=== PATIENT | female | born 1985 | race Caucasian/White ===

== ENCOUNTER 2024-12-05 07:40 | Outpatient (AMB) | payer OTHER, SELFPAY ==
--- OUTSIDE RECORDS SUMMARY | 2024-12-05 07:42 | XMS_ITS | Encounter Summary ---
Author Organization [facility] Address [address] [place] [address] Care Team Providers Care Spice Miller [employer] Mill Name Role Phone Unavailable Primary Care Provider Unavailabl e Encounter Details Date Type Department Care Team (Late st Contact Info) Description 01/14/2022 Scanned Document [facility] [address] [facility] [address] [place] [address] Mara Stanford PA-C [address] [place] [address] Social History Tobacco Use Types Packs/Day Years Used Date Smoking Tobacco: Never Smokeless Tobacco: Never Alcohol Use Standard Drinks/Week Comments Yes 0 (1 standard drink = 0.6 oz pur e alcohol) socially Comments Unknown Sex and Gender Information Value Date Recorded Sex Assigned at Not on file Legal Sex Female 12:11 PM EST Gender Identity Not on file Sexual Orientation Not on file documented as of this encounter Plan of Treatment Not on file documented as of this encounter Visit Diagnoses Not on filedocumented in this encounter
--- NOTE | 2024-12-05 07:43 | MHC.OFFWIV ---
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 Sinus/ear infection Intake Note: presents with sinus congestion, pain and ear pain, right sided throat pain for a couple weeks Allergies bitrex Adverse Reaction (Intermediate, Uncoded 12/05/24 07:46) throat swelling Do you need a note to return to daycare/school/sports/work: Yes HPI HPI Comments History of Present Illness Details Patient is a 38yo F who presents with cold symptoms She works at [employer] on 11/20 and had allergic reaction to the spray; had throat swelling etc That has resolved but sinuses irritating since then She has had congestion without facial pressure Bad pain to R ear especially when blowing nose Pain level is unknown but irritated per patient She said no documented fever/chills but 99.1 here She has tried no medicine Minima cough without CP or SOB + ST Review of Systems Const Denies chills and Denies fever(s) Eyes Denies change in vision ENT Reports otalgia, Denies facial pain, Reports nasal congestion, Reports nasal discharge, Reports sore throat and Denies throat swelling Card Denies chest pain and Denies dyspnea Resp Reports cough and Denies dyspnea Musc Denies myalgias Skin/Breast Denies rash Aller/Immun Denies throat swelling Physical Exam Vital Signs: Last Vital Signs Temp 99.1 F 12/05/24 07:44 Pulse 82 12/05/24 07:44 BP 104/60 12/05/24 07:44 Pulse Ox 100 12/05/24 07:44 Oxygen Delivery Method Room Air 12/05/24 07:44 BMI result Body Mass Index 34.7 General: Non-toxic, NAD. Speaking full sentences. Skin: Warm dry throughout Eye: EOMI, PERRL HENT: Airway patent. Uvula midline. No pharyngeal erythema or edema. No DIETITIAN RESEARCH. Bilateral canals clear. R TM + erythematous without bulge or perforation. L TM non-erythematous, non-bulging. No TM perforation or hemotympanum noted. No mastoid ttp bilaterally Respiratory: CTA bilaterally. No wheezes, rales or rhonchi Cardiac: RRR. No murmur MSK: Full ROM extremities. Neurology: Alert. No aphasia or facial droop. Gait without abnormality Psych: Good mood and affect Assessment & Plan Assessment & Plan (1) Otitis media, right: Code(s): H66.91 - Otitis media, unspecified, right ear Qualifiers: Otitis media type: suppurative Chronicity: acute Recurrence: non-recurrent Spontaneous tympanic membrane rupture: without spontaneous rupture Qualified Code(s): H66.001 - Acute suppurative otitis media without spontaneous rupture of ear drum, right ear Plan: Patient seen and evaluated. Amoxicillin Diflucan per pt requestfor antibiotic Start antihista,ine daily x 2 weeks F/U with PCP Patient gave verbal understanding and had no additional questions or concerns at time of discharge All questions answered Medications: New fluconazole 150 mg PO DAILY 1 tab 0RF amoxicillin 875 mg PO BID 14 tabs 0RF Coding Level of Care Code New Pt Level 3 (21088) Diagnoses Non-recurrent acute suppurative otitis media of right ear without spontaneous rupture of tympanic membrane H66.001 Otitis media type: suppurative Chronicity: acute Recurrence: non-recurrent Spontaneous tympanic membrane rupture: without spontaneous rupture
--- OUTSIDE RECORDS SUMMARY | 2024-12-05 07:43 | XMS_ITS | Clinical Summary ---
Author Organization [facility] Address [address] [place] [address] Care Team Providers Care Crane Ladle Person Name Role Phone Paco Araujo MD Primary Care Provider [phone] Surgical History Surgery Date Site/Laterality Comments SECTION PROCEDURE: [place] DELIVERY ONLY; COMMENT: x2 EYE SURGERY 2015 PROCEDURE: HISTORICAL EYE SURGERY; COMMENT: glaucoma Medical History Medical History Date Comments Arnold-Chiari malformation, type II ([facility] V24, [facility] V28) DX:Arnold-Chiari malformati on, type II ([facility]) ADHD (attention deficit hype ractivity disorder) DX:ADHD (attention deficit h yperactivity disorder) Bipolar 1 disorder ([facility] V24, [facility] V28) DX:Bipolar 1 disorder ([facility]) Depression DX:Depression Anxiety DX:Anxiety Migraines DX:Migraines IUD (intrauterine device) in place 2011 DX:IUD (intrauterine device) in place; COMMENT: Mirena 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 DX:Narrow angle glaucoma anca pect of both eyes Family History Medical History Relation Name Comments Other: alcoholism Other mother Blindness Neg Hx Cataracts Neg Hx Glaucoma Neg Hx Macular degeneration Neg Hx Strabismus Neg Hx Relation Name Status Comments Brother Alive x2 with adhd Father morphine overdo se Mother Alive mom is adopted, etoh Other Social History Tobacco Use Types Packs/Day Years Used Date Smoking Tobacco: Never Smokeless Tobacco: Never Alcohol Use Standard Drinks/Week Comments No 0 (1 standard drink = 0.6 oz pur e alcohol) Comments Unknown Sex and Gender Information Value Date Recorded Sex Assigned at Not on file Legal Sex Female 11:47 AM EST Gender Identity Not on file Sexual Orientation Not on file Obstetrics History Plan of Treatment Health Maintenance Due Date Last Done Comments Cervical Cancer Screening: Pap Smear 2006 DTaP,Tdap,and Td Vaccines (7 - Td or Tdap) 11/13/2018 11/13/2008, 03/24/2000, 01/27/1994, Additional history exists COVID-19 Vaccine ( - 2023- season) 2024 Influenza Vaccine (#1) 2025 HIB Vaccines Completed 12/10/1987 IPV Vaccines Completed 07/27/1990, 11/21, 12/10/1987, Additional history exists MMR Vaccines Completed 01/14/1998, 03/25/1987 Hepatitis B Vaccines Completed 11/06/1999, 07/04/1998, 06/16/1997 HPV Vaccines Aged Out No longer eligi ble based on patient's age to complete this topic Hepatitis A Vaccines Aged Out No long er eligible based on patient's age to complete this topic Meningococcal ACWY Vaccine Aged Out N o longer eligible based on patient's age to complete this topic Meningococcal B Vaccine Aged Out No l onger eligible based on patient's age to complete this topic Pneumococcal Vaccine: Pediatrics (0 to 5 Years) and At-Risk Patients (6 to 49 Years) Aged Out No longer eligible based on patient's age to complete this topic RSV Immunization Patients Under 20 months Aged Out No longer eligible based on patient's age to complete this topic Varicella Vaccines Aged Out No longer eligible based on patient's age to complete this topic Care Teams Crane Ladle Person Relationship Specialty Start Date End Date Paco Araujo MD PCP - General Internal Medicine 03/12/15
[2024-12-05 07:44] VITALS: BP 104/60; PULSE 82; TEMP 37.3; O2SAT 100; BMI 34.7
== END 2024-12-05 08:52 | disposition home or self-care (01) ==
PROVIDERS: Visit Provider Physician Assistant
DX: H66.001 Acute suppurative otitis media without spontaneous rupture of ear drum, right ear (principal)

== ENCOUNTER 2025-01-08 14:57 | Outpatient (AMB) | payer OTHER, SELFPAY ==
[2025-01-08 15:33] VITALS: BP 116/70; PULSE 76; TEMP 37.1; O2SAT 99; BMI 35.6
--- NOTE | 2025-01-08 15:33 | AM.OFFWIN_ITS ---
Intake Vital Signs 01/08/25 15:33 Height 5 ft 3 in Weight 201 lb 4 oz BMI 35.6 BP 116/70 Blood Pressure Location Rt brachial Position Sitting Pulse 76 Pulse Source Pulse Oximeter Temp 98.7 F Temp Source Oral Pulse Oximetry (%) 99 Oxygen Delivery Method Room Air Intake Visit Reasons: EP-sinus infection Patient Tobacco Use Status: Never used Tobacco Application Release Manager Required: No Is last menstrual period known: No Post menopausal: No Patient : No Allergies bitrex Adverse Reaction (Intermediate, Uncoded 12/05/24 07:46) throat swelling Do you need a note to return to daycare/school/sports/work: No HPI HPI Comments History of Present Illness Details History - The patient is a 39-year-old female pr esenting with symptoms suggestive of a possible COVID-19 infection or sinusitis. - Symptoms began on Wednesday with a scratc hy throat, worsening over the weekend with sore throat, congestion, and white patches in the throat. - The patient reports a stabbing sensati on in the throat, cough, and headache, with fatigue noted. - Recent exposure to infectious mononucl eosis through her children, who were diagnosed with the condition. 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 - Has been eating and drinking. - She denies fever or chills, abd pain, n/v/d. - Is leaving for a cruise in 10 days and wants to feel better. Physical Exam General: Cooperative, healthy appearing, comfortable and no acute distress Orientation/consciousness: Patient oriented x3 Limitations: No limitations Head: Normal to inspection Ears: Hearing grossly normal bilaterally, external ears normal and TM's normal bilaterally Nose: Normal external nose present, normal nares present, and no nasal discharge present. Face and sinus: Sinuses nontender to palpation. Mouth: Normal oral and palatal mucosa present and moist mucous membranes noted. Throat: Tonsils normal. Uvula is midline. Posterior oropharynx with erythema and white patches noted. Eyes: Appearance normal, both eyes and all related structures Neck: Normal visual inspection, full ROM. No lymphadenopathy noted. Reports of muscle spasms and tightness. Respiratory: Clear to auscultation bilaterally. Normal respiratory effort, able to speak in complete sentences. No respiratory distress, not tachypneic, no tripod positioning and no use of accessory muscles. Cardiovascular: Regular rate and rhythm. Normal S1 and S2 Skin: No rashes or lesions noted Patient was informed and verbally consented to the use of an ambient scribe for clinic note documentation during this visit [facility] Social History Patient Tobacco Use Status: Never used Tobacco Patient : No Review of Systems Const All systems reviewed & are unremarkable except as noted in HPI and below Physical Exam Vital Signs: Last Vital Signs Temp 98.7 F 01/08/25 15:33 Pulse 76 01/08/25 15:33 BP 116/70 01/08/25 15:33 Pulse Ox 99 01/08/25 15:33 Oxygen Delivery Method Room Air 01/08/25 15:33 BMI result Body Mass Index 35.6 Results AMB Rapid Strep AMB Rapid Strep Negative Last Edit by Belia Lindsay MA on 01/08/25 16:23 AMB Rapid Kittson AMB Rapid [place] Negative Last Edit by Belia Lindsay MA on 01/08/25 16:23 Results Reviewed Results Reviewed: Laboratory Last Values Monoscreen (Clinic) Negative 01/08/25 16:21 Strep Scn Rapid Clinic Negative 01/08/25 16:21 Assessment & Plan Assessment & Plan (1) Sore throat: Code(s): J02.9 - Acute pharyngitis, unspecified (2) URI with cough and congestion: Code(s): J06.9 - Acute upper respiratory infection, unspecified Plan Most likely mono vs strep vs URI vs sinusitis Rapid mono is negative Rapid strep is neg Plan - Perform tests for COVID-19/flu/RSV - Perform a mononucleosis and streptococcal pharyngitis to determine the cause of symptoms. - Salt water gargles - Diet as tolerated - tylenol or motrin as needed for pain or fever - will call her with results - follow up with PCP Orders: Orders Monotest Today J02.9 - Acute pharyngitis, unspecified SARS-CoV2/FLU/RSV Today R09.89 - Other specified symptoms and signs involving the circulatory and respiratory systems AMB Rapid Strep Screen Today J02.9 - Acute pharyngitis, unspecified AMB Kittson Screen Today Z13.9 - Encounter for screening, unspecified Coding Level of Care Code Est Pt Level 4 (91126) Diagnoses Sore throat J02.9 URI with cough and congestion J06.9
--- OUTSIDE RECORDS SUMMARY | 2025-01-08 15:37 | XMS_ITS | Encounter Summary ---
Author Organization [facility] Address [address] [place] [address] Care Team Providers Care Welder Repair Name Role Phone Unavailable Primary Care Provider Unavailabl e Encounter Details Date Type Department Care Team (Late st Contact Info) Description 01/14/2022 Scanned Document [facility] [address] [facility] [address] [place] [address] Mara Stanford PA-C [address] [place] [address] Social History Tobacco Use Types Packs/Day Years [...]
--- OUTSIDE RECORDS SUMMARY | 2025-01-08 15:37 | XMS_ITS | Clinical Summary ---
Author Organization [facility] Address [address] [place] [address] Care Team Providers Care Proj Engineer Name Role Phone Paco Araujo MD Primary Care Provider [phone] Surgical History Surgery Date Site/Laterality Comments SECTION PROCEDURE: CT DELIVERY ONLY; COMMENT: x2 EYE SURGERY 2015 PROCEDURE: HISTORICAL EYE SURGERY; COMMENT: glaucoma Medical History Medical History Date Comments Arnold-Chiari malformation, type II ([facility] V24, [facility] V28) DX:Arnold-Chiari malformati on, type II ([facility]) ADHD (attention deficit hype ractivity disorder) DX:ADHD (attention deficit h yperactivity disorder) Bipolar 1 disorder ([facility] V24, [facility] V28) DX:Bipolar 1 disorder ([facility]) Depression DX:Depression Anxiety DX:Anxiety Migraines DX:Migraines IUD [...] Additional history exists COVID-19 Vaccine ( - season) 2024 Depression Screening 05/24/2024 Influenza Vaccine (#1) 2025 HIB Vaccines Completed [...] age to complete this topic Care Teams Proj Engineer Relationship Specialty Start Date End Date Paco Araujo MD PCP - General Internal Medicine 03/12/15
--- OUTSIDE RECORDS SUMMARY | 2025-01-08 15:37 | XMS_ITS ---
Author Name [facility] Organization Unknown History of Medication Use Medication Directions Dispensed Refills Start Date End Date Stat us tiZANidine (ZANAFLEX) 2 MG tablet Take 2 tablets (4 mg total) by mouth 2 (two) times a day as needed for muscle spasms. 07/10/2022 09/09/2022 active ZOLMitriptan (ZOMIG) 5 MG tablet 12/06/2019 07/10/2022 aborted ALPRAZolam (XANAX) 0.25 MG tablet Take 0.25 mg by mouth. active Allergies Allergen Reaction Severity Comment Documented Date Source Statu s CLINDAMYCIN PHOS-BENZOYL PEROX SHORTNESS OF BREATH Severe 09/18/2016 [facility] active CARBAMAZEPINE RASH/DERMATITIS Mild 03/27/2015 [facility] active PNEUMOCOCCAL VACCINES OTHER (SEE COMMENTS) 03/14/2015 [facility] active LITHIUM OTHER (SEE COMMENTS) [facility] Problems Problem Status Onset Date Problem Type Date of Resoluti on Source Adhesive capsulitis of right shoulder active EncounterDiagnosisAct [facility] Cervicalgia active EncounterDiagnosisAct [facility] Myofascial pain dysfunction syndrome active EncounterDiagnosisAct [facility] Chronic migraine without aura without status migrainosus, not intractable active EncounterDiagnosisAct [facility] Chronic right shoulder pain active 2019-12-27 ProblemAct [facility] Encounters Encounter Type Encounter Reason Primary Diagnosis Location Date Ambulatory Adhesive capsuli tis of right shoulder [facility] 07/10/2022 Ambulatory Adhesive capsuli tis of right shoulder [facility] 09/17/2021 Care Team Organization Name Specialty Phone Email Start Date End Da te [facility] 09/17/2021 [facility] 12/27/2019 09/17/2021
== END 2025-01-08 16:43 | disposition home or self-care (01) ==
PROVIDERS: Visit Provider Physician Assistant Medical
DX: J02.9 Acute pharyngitis, unspecified (principal); J06.9 Acute upper respiratory infection, unspecified

== ENCOUNTER 2025-01-08 14:57 | Outpatient (REF) | payer OTHER, SELFPAY ==
[2025-01-09 11:06] LABS: Resp Syncy Virus RNA Qual PCR NEGATIVE (Negative); SARS COV2 PCR INHOUSE NEGATIVE (Negative)
== END 2025-01-08 14:58 | disposition home or self-care (01) ==
LOC: HO.LAB 14:57
PROVIDERS: Visit Provider Physician Assistant Medical
DX: J02.9 Acute pharyngitis, unspecified (principal); J06.9 Acute upper respiratory infection, unspecified; R09.89 Other specified symptoms and signs involving the circulatory and respiratory systems; Z13.89 Encounter for screening for other disorder
CPT/HCPCS: 87637; 87880

== ENCOUNTER 2025-01-09 12:19 | Outpatient (REF) | payer OTHER, SELFPAY ==
--- OUTSIDE RECORDS SUMMARY | 2025-01-09 13:37 | XMS_ITS | Clinical Summary ---
Author Organization [facility] it[facility] Address [address] [place] [address] Care Team Providers Care Grain Oilseed Or Pasture Grower Name Role Phone Paco Araujo MD Primary Care Provider [phone] Surgical History Surgery Date Site/Laterality Comments SECTION PROCEDURE: [place] DELIVERY ONLY; COMMENT: x2 EYE SURGERY 2015 PROCEDURE: HISTORICAL EYE SURGERY; COMMENT: glaucoma Medical History Medical History Date Comments Arnold-Chiari malformation, type II ([facility] V24, [facility] V28) DX:Arnold-Chiari malformati on, type II ([facility]) ADHD (attention deficit hype ractivity disorder) DX:ADHD (attention deficit h yperactivity disorder) Bipolar 1 disorder ([facility] V24, [facility] V28) DX:Bipolar 1 disorder ([facility]) Depression DX:Depression Anxiety DX:Anxiety Migraines DX:Migraines [...] age to complete this topic Care Teams Grain Oilseed Or Pasture Grower Relationship Specialty Start Date End Date Paco Araujo MD PCP - General Internal Medicine 03/12/15
--- OUTSIDE RECORDS SUMMARY | 2025-01-09 13:37 | XMS_ITS | Encounter Summary ---
Author Organization [facility] Address [address] [place] [address] Care Team Providers Care Nitroglycerin Distributor Name Role Phone Paco Araujo MD Primary Care Provider [phone] Encounter Details Date Type Department Care Team Description 08/07/2016 [facility] [address] [place] [address] Abstract, Provider Social History Tobacco Use Types Packs/Day Years Used Date Smoking Tobacco: Never Smokeless Tobacco: Never Alcohol Use Standard Drinks/Week Comments No 0 (1 standard drink = 0.6 oz pur e alcohol) once per month, if that Sex Assigned at Date Recorded Not on file documented as of this encounter Plan of Treatment Not on file documented as of this encounter Procedures Procedure Name Priority Date/Time Associated Diagnosis Comments OUTSIDE PLAIN FILM Routine 07/18/2016 documented in this encounter Results * OUTSIDE PLAIN FILM (07/18/2016) Provider Abstract RADIOLOGY documented in this encounter Visit Diagnoses Not on filedocumented in this encounter Care Teams Nitroglycerin Distributor Relationship Specialty Start Date End Date Paco Araujo MD [address] [place] [id number] PCP - General Internal Medicine 03/12/15 documented as of this encounter
--- OUTSIDE RECORDS SUMMARY | 2025-01-09 13:37 | XMS_ITS | Encounter Summary ---
Author Organization [facility] Address [address] [place] [address] Care Team Providers Care Spider Assembler Name Role Phone Unavailable Primary Care Provider Unavailabl e Encounter Details Date Type Department Care Team (Late st Contact Info) Description 01/14/2022 Scanned Document [facility] [address] [facility] [address] [place] [address] Mara Stanford PA-C [address] [place] [address] Social History Tobacco Use Types Packs/Day Years [...]
== END 2025-01-09 12:20 | disposition home or self-care (01) ==
LOC: HO.LAB 12:19
PROVIDERS: Visit Provider Physician Assistant Medical
DX: J02.9 Acute pharyngitis, unspecified (principal)
CPT/HCPCS: 36415; 86308

== ENCOUNTER 2025-02-19 10:27 | Outpatient (REF) | payer OTHER, SELFPAY ==
[2025-02-19 14:39] LABS: Appearance Urine Clear; Glucose Urine UA Negative (Negative); PH 5.5 (5.0-9.0); Specific Gravity - Urine 1.020 (1.005-1.025); UMIC TRIGGER UACC YES
[2025-02-19 14:50] LABS: UACC Culture Trigger YES
[2025-02-19 16:00] LABS: Bacterial Vaginosis PCR NEGATIVE (Negative); Candida Group PCR DETECTED (Not Detect); Candida glab krusei PCR NOT DETECTED (Not Detect); Trichomonas vaginalis PCR NOT DETECTED (Not Detect)
== END 2025-02-19 10:28 | disposition home or self-care (01) ==
LOC: HO.LAB 10:27
PROVIDERS: Visit Provider Nurse Practitioner Family
DX: N76.0 Acute vaginitis (principal)
CPT/HCPCS: 81001; 81003; 81515; 87086

== ENCOUNTER 2025-02-19 10:27 | Outpatient (AMB) | payer OTHER, SELFPAY ==
[2025-02-19 10:33] VITALS: BP 102/64; PULSE 79; TEMP 36.7; O2SAT 98; BMI 36.5
--- NOTE | 2025-02-19 10:33 | AM.OFFWIN_ITS ---
Intake Vital Signs 02/19/25 10:33 Height 5 ft 3 in Weight 206 lb BMI 36.5 BP 102/64 Blood Pressure Location Lt brachial Position Sitting Pulse 79 Pulse Source Pulse Oximeter Temp 98.1 F Temp Source Oral Pulse Oximetry (%) 98 Oxygen Delivery Method Room Air Intake Visit Reasons: ep possible uti or bv/yeast infection Intake Note: pt represents with internal/external itching and skin irritation. Pt states she tried OTC, Fluconazole x2 while in [place] then Monistat one a day x3 Patient Tobacco Use Status: Never used Tobacco Allergies bitrex Adverse Reaction (Intermediate, Uncoded 02/19/25 10:36) throat swelling HPI HPI Comments History of Present Illness Details 39 y/o Female patient who presents to [facility] walk in clinic today with c/o Vaginal Yeast infection for a month now. Reports White thick vaginal discharge, itching and burning. She was on a Cruise when she started having symptoms - took Fluconazole 2 doses with no relief. She has also used OTC Monistat for few weeks with no relief. Denies Bowel or urinary Symptoms. Denies fevers, chills, nausea or vomiting. Sexually active with one male partner - no concerns for STIs. [facility] Medical History (Updated 02/19/25 @ 11:38 by Aspen Dexter NP) Vaginitis and vulvovaginitis Social History Patient Tobacco Use Status: Never used Tobacco Review of Systems Const All systems reviewed & are unremarkable except as noted in HPI and below Physical Exam Vital Signs: Last Vital Signs Temp 98.1 F 02/19/25 10:33 Pulse 79 02/19/25 10:33 BP 102/64 02/19/25 10:33 Pulse Ox 98 02/19/25 10:33 Oxygen Delivery Method Room Air 02/19/25 10:33 BMI result Body Mass Index 36.5 Const General: no acute distress Nutritional Appearance: obese Orientation/consciousness: patient oriented x3 GI Palpation (GI): Soft to palpation, not firm, Tenderness to palpation present (GI) suprapubicly, no guarding and not rigid General: Yes no CVA tenderness External Female Exam: erythema and externally tender Speculum Exam - Vagina: abnormal vaginal discharge white and malodorous and erythematous Speculum Exam - Cervix: Cervical os open, Abnormal cervical discharge present white and malodorous and nontender Bimanual exam- vagina & uterus: uterine size normal and No Cervical tenderness present Bimanual Exam- Adnexa, other: no masses OB/external & speculum: Cervical os open Back/Spine/Pelvis Back: no CVA tenderness Neuro General: patient oriented x3, gait normal and moves all extremities Psych Speech and movement: Normal speech and movement present Assessment & Plan Assessment & Plan (1) Vaginitis and vulvovaginitis: Code(s): N76.0 - Acute vaginitis Plan: Ordered Bacterial Panel Urinalysis Negative today - will Send urine for C&S Will treat with Fluconazole q3days plus topical Terconazole. Abstain from intercourse until infection clears. Orders: Orders Bacterial Vaginosis Panel Today N76.0 - Acute vaginitis UA CC w/rflx Micro + Cult Today N76.0 - Acute vaginitis Medications: New fluconazole 150 mg PO Q3D 3 tabs 4RF 3 days N89.8 - Other specified noninflammatory disorders of vagina terconazole 80 mg vaginal BEDTIME 3 ea 2RF 3 days N76.0 - Acute vaginitis Coding Level of Care Code Est Pt Level 4 (54704) Diagnoses Vaginitis and vulvovaginitis N76.0 Time Spent (min) 20
--- OUTSIDE RECORDS SUMMARY | 2025-02-19 11:40 | XMS_ITS | Encounter Summary ---
Author Organization [facility] Address [address] [place] [address] Care Team Providers Care Child Care Aide Name Role Phone Unavailable Primary Care Provider Unavailabl e Encounter Details Date Type Department Care Team (Late st Contact Info) Description 01/14/[address] [facility] [address] [facility] [address] [place] [address] Mara Stanford PA-C [address] [place] [address] Social History Tobacco Use Types Packs/Day Years [...]
--- OUTSIDE RECORDS SUMMARY | 2025-02-19 11:40 | XMS_ITS | Encounter Summary ---
Author Organization [facility] Address [address] [place] [address] Care Team Providers Care Telesales Representative Name Role Phone Unavailable Primary Care Provider Unavailabl e Encounter Details Date Type Department Care Team ([facility] st Contact Info) Description 04/23/2021 Erroneous Encounter [facility] CONVERSION DEPT [address] [place] [address] Nati Xie, [facility] [address] [facility] [address] [place], [place] [id number] Social History Tobacco Use Types Packs/Day Years [...]
--- OUTSIDE RECORDS SUMMARY | 2025-02-19 11:40 | XMS_ITS | Clinical Summary ---
Author Organization [facility] Address [address] [place] [address] Care Team Providers Care Fence Maker Name Role Phone Unavailable Primary Care Provider Unavailabl e Allergies Active Allergy Reactions Criticality Noted Date Comments Carbamazepine Rash/Dermatitis Low 03/27/2015 Clindamycin Phos-Benzoyl Perox Shortness Of Breath High 09/18/2016 [place] Other (See Comments) 03/14/2015 Pneumococcal Vaccines Other (See Comments) 02/22 Medications ALPRAZolam (XANAX) 0.25 MG tablet Take 0.25 mg by mouth. Active amphetamine-dex troamphetamine (ADDERALL XR) 20 MG 24 hr capsule Take 20 mg by mouth. Active amphetamine-dex troamphetamine (ADDERALL) 20 MG tablet Take 20 mg by mouth. Active levonorgestrel (MIRENA) 20 mcg/24hr IUD 1 each by Intrauterine route. Active SUPPLY DME MISCIndications :Chronic right shoulder pain,Cervicalgi a OSKA 1 each 2 Active tiZANidine (ZANAFLEX) 2 MG tabletIndicatio ns:Adhesive capsulitis of right shoulder,Myofas cial pain dysfunction syndrome,Cervic algia,Chronic right shoulder pain Take 2 tablets (4 mg total) by mouth 2 (two) times a day as needed for muscle spasms. 60 tablet 3 Active meloxicam (MOBIC) 7.5 MG tabletIndicatio ns:Adhesive capsulitis of right shoulder,Myofas cial pain dysfunction syndrome,Cervic algia,Chronic right shoulder pain Take 1 tablet (7.5 mg total) by mouth 2 (two) times a day as needed for moderate pain. 30 tablet 3 Active ZOLMitriptan (ZOMIG) 5 MG tabletIndicatio ns:Chronic migraine without aura without status migrainosus, not intractable Take 1 tablet (5 mg total) by mouth once as needed for migraine. 3 tablet 3 Active Active Problems Problem Noted Date Diagnosed Date Chronic right shoulder pain 12/27/2019 Family History Medical History Relation Name Comments Anxiety disorder Brother Anxiety disorder Mother Depression Mother Relation Name Status Comments Brother Mother Social History Tobacco Use Types Packs/Day Years Used Date Smoking Tobacco: Never Smokeless Tobacco: Never Tobacco Cessation:Counseling Given: Not Answered Alcohol Use Standard Drinks/Week Comments Yes 0 (1 standard drink = 0.6 oz pur e alcohol) socially Comments Unknown Sex and Gender Information Value Date Recorded Sex Assigned at Not on file Legal Sex Female 12:11 PM EST Gender Identity Not on file Sexual Orientation Not on file Last Filed Vital Signs Vital Sign Reading Time Taken Comments Blood Pressure 121/74 07/10/2022 10:39 AM EST Pulse 80 07/10/2022 10:39 AM EST Temperature 36.7 C (98.1 F) 07/10/2022 10:39 AM EST Respiratory Rate 18 07/10/2022 10:39 AM EST Oxygen Saturation 97% 07/10/2022 10:39 AM EST Inhaled Oxygen Concentration - - Weight 90.7 kg (200 lb) 07/10/2022 10:39 AM EST Height 162.6 cm (5' 4.02 ) 07/10/2022 10:[address] Body Mass Index 34.31 07/10/2022 10:39 AM EST Plan of Treatment Health Maintenance Due Date Last Done Comments Hepatitis C Virus Screening 1985 HIV Screening 1998 DTaP/Tdap/Td Vaccines (1 - Tdap) 2004 Hepatitis B Vaccines (1 of 3 - 19+ 3-dose series) 2004 Pap Smear (Ages 21-65) 2006 Influenza Vaccine 12/22/2024 COVID-19 Vaccine (1 - 2023-2 5 season) 2025 HPV Vaccines (No Doses Required) Completed Pneumococcal Vaccine: Pediat manohar (0-5 Years) and At-Risk Patients (6 to 49 Years) Aged Out No longer eligible b ased on patient's age to complete this topic Insurance [facility]
--- OUTSIDE RECORDS SUMMARY | 2025-02-19 11:40 | XMS_ITS | Clinical Summary ---
Author Organization [facility] Address [address] [place] [address] Care Team Providers Care Basin Cleaner Name Role Phone Paco Araujo MD Primary Care Provider [phone] Surgical History Surgery Date Site/Laterality Comments SECTION PROCEDURE: OR DELIVERY ONLY; COMMENT: x2 EYE SURGERY 2015 PROCEDURE: HISTORICAL EYE SURGERY; COMMENT: glaucoma Medical History Medical History Date Comments Arnold-Chiari malformation, type II ([facility] V24, [facility] V28) DX:Arnold-Chiari malformati on, type II ([facility]) ADHD (attention deficit hype ractivity disorder) DX:ADHD (attention deficit h yperactivity disorder) Bipolar 1 disorder ([facility] V24, [facility] V28) DX:Bipolar 1 disorder ([facility]) Depression DX:Depression Anxiety DX:Anxiety Migraines DX:Migraines IUD [...] 11/13/2018 11/13/2008, 03/24/2000, 01/27/1994, Additional history exists Depression Screening 05/24/2024 COVID-19 Vaccine ( season) 2025 Influenza Vaccine (#1) 2025 HIB Vaccines Completed [...] age to complete this topic Care Teams Basin Cleaner Relationship Specialty Start Date End Date Paco Araujo MD [address] [place] [id number] PCP - General Internal Medicine 01/23/25
== END 2025-02-19 11:39 | disposition home or self-care (01) ==
PROVIDERS: Visit Provider Nurse Practitioner Family
DX: N76.0 Acute vaginitis (principal); Z13.9 Encounter for screening, unspecified

== ENCOUNTER 2025-03-23 10:19 | Outpatient (REF) | payer OTHER, SELFPAY ==
[2025-03-23 18:55] LABS: Appearance Urine Clear; Glucose Urine UA Negative (Negative); PH 7.0 (5.0-9.0); Specific Gravity - Urine 1.010 (1.005-1.025); UMIC TRIGGER UACC YES
[2025-03-23 19:22] LABS: UACC Culture Trigger YES
[2025-03-24 12:01] LABS: CT PCR Urine NOT DETECTED (Not Detect.); NG PCR Urine NOT DETECTED (Not Detect.)
[2025-03-24 14:30] LABS: Bacterial Vaginosis PCR NEGATIVE (Negative); Candida Group PCR DETECTED (Not Detect); Candida glab krusei PCR NOT DETECTED (Not Detect); Trichomonas vaginalis PCR NOT DETECTED (Not Detect)
== END 2025-03-23 10:20 | disposition home or self-care (01) ==
LOC: HO.LAB 10:19
PROVIDERS: Nurse Practitioner Family; Visit Provider Physician Assistant Medical
DX: Z00.00 Encounter for general adult medical examination without abnormal findings (principal); E11.43 Type 2 diabetes mellitus with diabetic autonomic (poly)neuropathy; K31.84 Gastroparesis; E78.5 Hyperlipidemia, unspecified; G93.5 Compression of brain; F90.9 Attention-deficit hyperactivity disorder, unspecified type; N63.20 Unspecified lump in the left breast, unspecified quadrant; E83.39 Other disorders of phosphorus metabolism; E04.9 Nontoxic goiter, unspecified; J34.2 Deviated nasal septum; M79.671 Pain in right foot; M79.672 Pain in left foot; N76.0 Acute vaginitis; G43.909 Migraine, unspecified, not intractable, without status migrainosus; Z76.89 Persons encountering health services in other specified circumstances; Z79.84 Long term (current) use of oral hypoglycemic drugs
CPT/HCPCS: 81001; 81515; 87086; 87491; 87591; 96127

== ENCOUNTER 2025-03-23 10:19 | Outpatient (AMB) | payer OTHER, SELFPAY ==
--- NOTE | 2025-03-23 10:19 | A.OFFPC_ITS ---
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 Telephone Information Required: No Accompanied by: Self / Same As Patient Allergies carbamazepine (From Tegretol) Allergy (Mild, Verified 03/23/25 11:22) Rash lamotrigine (From Lamictal) Allergy (Mild, Verified 03/23/25 11:22) Rash Latex, Natural Rubber Allergy (Mild, Verified 03/23/25 11:22) Rash lithium Allergy (Mild, Verified 03/23/25 11:22) hypothyroidism pneumonia vaccine Allergy (Mild, Uncoded 03/23/25 11:22) cellulitis bitrex Adverse Reaction (Intermediate, Uncoded 03/23/25 11:22) throat swelling Medication List - Last Reconciled 03/23/25 by Meche Hoffman PA-C albuterol sulfate 90 mcg/actuation (Ventolin HFA) 2 puffs inhalation Q6H PRN atorvastatin 80 mg PO BEDTIME blood-glucose sensor (Dexcom G7 Sensor device) check glucose TIF with meals and at bedtime blood-glucose,vaccine customer representative,cont (Dexcom G7 White Lead Grinder) check glucose TID with meals and at bedtime cholecalciferol (vitamin D3) 1,250 mcg PO QWEEK dextroamphetamine-amphetamine 20 mg PO dextroamphetamine-amphetamine 30 mg ER 1 cap PO DAILY dicyclomine 20 mg PO TID PRN ezetimibe 10 mg PO DAILY famotidine 40 mg PO DAILY fluconazole 150 mg PO Q3D 3 days hydrocortisone 2.5% SC BID PRN meloxicam 15 mg PO DAILY metformin 500 mg PO BID ondansetron 4 mg PO TID PRN pantoprazole 40 mg PO BID terconazole 80 mg vaginal BEDTIME 3 days tizanidine 4 mg PO Q8H PRN ubrogepant (Ubrelvy) mg PO zolmitriptan 5 mg PO DAILY PRN Tobacco use date assessed: 03/23/25 Dental Screening Dental Screen Date: 03/23/25 Did you have a dental visit in the last 12 months?: Yes Did you have a dental problem in the last 6 months where you did not have access to dental care?: No Was dental information given to patient?: Patient has dentist HPI Establish Care HPI Details The patient is a 39-year-old female presenting to establish care and for a physical examination. She has a history of gastroparesis, which was diagnosed within the last year via a gastric emptying study after she advocated for the testing for over a year. This diagnosis followed a cholecystectomy in June of the previous year, which was performed because her symptoms were initially attributed to her gallbladder. Associated with her gastroparesis, she reports issues with malabsorption, which she believes contributes to her history of hypophosphatemia. She reports her phosphate levels have dropped to critically low levels, with one instance of 0.7 leading to an emergency department visit where a pulmonary embolism was suspected. She also has insulin resistance secondary to gastroparesis, technically classified as type 2 diabetes, for which she takes metformin 500 mg twice daily. The patient has a history of hyperlipidemia, managed with atorvastatin 80 mg and ezetimibe 10 mg. She was previously followed by a [facility] where there were conflicting reports about a partial blockage. Neurologically, she has a diagnosis of Arnold-Chiari malformation type 1, with an 8-mm herniation, and suffers from migraines. For her migraines, she takes zolmitriptan and tizanidine. Her psychiatric history is significant for ADHD, for which she is treated with Adderall XR 30 mg and a supplemental dose of IR 20 mg, as she is an ultra-rapid metabolizer. She reports no history of anxiety or depression. Other medical history includes asthma treated with albuterol, a deviated septum causing breathing difficulties, and recurrent ear and sinus infections, which she suspects may be fungal. She reports a partially collapsed right lung discovered accidentally on a CT scan last year, months after having RSV. She also has bilateral foot pain, possibly related to very high arches. Her gynecological history includes recurrent vulvovaginal candidiasis, with a positive test for yeast one month prior. She has a painful breast lump present for a couple of months and a history of fibrous breasts. She has not had a cervical cancer screening in a long time and has never had a mammogram. She had a colonoscopy within the last year. 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 [facility] Medical History Enlarged thyroid Left breast lump Deviated septum Type 2 diabetes mellitus with hemoglobin A1c goal of less than 7.0% Pure hypercholesterolemia, unspecified Hypophosphatemia Hyperlipidemia Bilateral foot pain Gastroparesis Arnold-Chiari malformation, type I ADHD Cervical cancer screening Annual physical exam Encounter for assessment of STD exposure Vaginitis and vulvovaginitis Surgical History History of cholecystectomy (~2023) History of colonoscopy (~2023) Family History Father No problems noted. Mother COPD (chronic obstructive pulmonary disease) Heart problem Social History Housing: House Alcohol intake: current Alcohol intake frequency: does not drink Patient Tobacco Use Status: Never used Tobacco service: No Current occupational status: employed Current occupation: [employer] employee Cognitive needs: No Hearing needs: No Vision needs: No Questionnaire PHQ-9 Over the last 2 weeks, how often have you been bothered by any of the following problems? 1. Little interest or pleasure in doing things: not at all 2. Feeling down, depressed, or hopeless: not at all 3. Trouble falling or staying asleep, or sleeping too much: not at all 4. Feeling tired or having little energy: not at all 5. Poor appetite or overeating: not at all 6. Feeling bad about yourself - or that you are a failure or have let yourself or your family down: not at all 7. Trouble concentrating on things, such as reading the newspaper or watching television: not at all 8. Moving or speaking so slowly that other people could have noticed. Or the opposite - being so fidgety or restless that you have been moving around a lot more than usual: not at all 9. Thoughts that you would be better off or of hurting yourself in some way: not at all Total score: 0 Depression Screening Interpretation: Negative Depression Screening Done: Yes 39485 - PHQ-9 Billing: Yes Source: Developed by Drs. Herber Aragon, Bruna Lei, Jese Earl and colleagues, with an educational aric from [employer]. Thrive Questionnaire Date Thrive assessed: 03/23/25 I am a: Patient What is your living situation today?: I have a steady place to live Within the past 12 months, did the food you bought not last and you didn't have the money to get more?: Never true Within the past 12 months, did you worry whether your food would run out before you got money to buy more?: Never true Do you have trouble paying for medicines?: No Do you have trouble getting transportation to medical appointments?: No Do you have trouble paying your heating and electricity bill?: No Do you have trouble taking care of your child, family member or friend?: No Do you have trouble with day-to-day activities such as bathing, preparing meals, shopping, managing finances, etc.?: No Are you currently unemployed and looking for a job?: No Are you interested in more education?: No Please select the resources that you would like help with: None THRIVE Score: 0 AUDIT C Alcohol Use Questionnaire (AUDIT-C) 1. How often do you have a drink containing alcohol?: Never 3. How often do you have six or more drinks on one occasion?: Never Total Score: 0 Score Reviewed/Action Taken: No MARYAM-7 AMB Questionnaire MARYAM-7 Date MARYAM - 7 assessed: 03/23/25 Feeling nervous, anxious, or on edge: 0 = Not at all Not being able to stop or control worryin = Not at all Worrying too much about different things: 0 = Not at all Trouble relaxin = Not at all Being so restless that it is hard to sit still: 0 = Not at all Becoming easily annoyed or irritable: 0 = Not at all Feeling afraid as if something awful might happen: 0 = Not at all Total MARYAM-7 score (0-4 normal; 5-9 mild; 10-14 moderate; 15-21 severe): 0 Source: Developed by Drs. Herber Aragon, Bruna Lei, Jese Earl and colleagues, with an educational aric from [employer]. MARYAM-7 Assessment Billing MARYAM-7 Assessment Tool: MARYAM-7 Assessment 27317 Review of Systems Const Details: - HEENT: Reports recurrent ear and sinus infections, with a sinus infection that is not resolving with antibiotics. Denies hearing loss. - Respiratory: Reports a deviated septum that makes it difficult to breathe. Reports history of a partially collapsed lung. Denies trouble breathing at present. - Gastrointestinal: Reports history of gastroparesis and an esophageal stasis ring that was previously dilated. Denies difficulty swallowing. - Genitourinary: Reports recurrent vaginal discharge and yeast infections. - Musculoskeletal: Reports bilateral foot pain, possibly related to high arches. - Neurological: Reports migraines. Denies other neurological symptoms. - Breasts: Reports a painful lump that has been present for a couple of months. Reports a history of fibrous breasts. - Endocrine: Denies any known history of thyroid problems, though mentions a family history of thyroid issues. - Psychiatric: Reports a diagnosis of ADHD. Denies anxiety or depression. - Cardiovascular: Denies leg swelling. All systems reviewed & are unremarkable except as noted in HPI and below Physical exam (Primary Care) Vital Signs: Last Vital Signs Temp 98.4 F 03/23/25 10:30 Pulse 73 03/23/25 10:30 Resp 16 03/23/25 10:30 BP 112/55 L 03/23/25 10:30 Pulse Ox 98 03/23/25 10:30 Oxygen Delivery Method Room Air 03/23/25 10:30 Care Plan Goal for BP management: <140/90 at Goal BMI result Body Mass Index 37.5 BMI Assessment/Plan discussion: High BMI High, discussed plan: lifestyle, weight reduction, dietary, physical activity, alcohol moderation and other Tobacco/Smoking Status: Tobacco use Status Tobacco use date assessed 03/23/25 03/23/25 10:47 Patient Tobacco Use Status Never used Tobacco 03/23/25 10:29 PHQ-9: PHQ-9 Score PHQ-9: Total score 0 03/23/25 10:47 Depression Screening Interpretation: Negative Thrive Assessment: Date of Thrive Assessment Date Thrive assessed 03/23/25 03/23/25 10:47 Const Other: Appearance: Alert. Oriented X3. No acute distress. Head: Normal external exam. Normocephalic. Atraumatic. Eyes: Pupils are equal, round, and reactive to light. Extraocular movements intact. Conjunctiva and sclera normal. Eyelids normal. Ears: External auditory canal normal. Tympanic membranes normal. Throat: Pharynx normal. Uvula midline. Moist mucous membranes. Neck: Normal inspection. Neck supple. Full range of motion. No adenopathy. Thyroid appears enlarged but no discrete lumps felt. No meningeal signs. No neck mass noted. Cardiovascular: Normal heart rate and rhythm. Heart sound normal. No murmurs noted. Pulses normal throughout. Breast: Left breast at the 03:00 painful lump. No signs of abscess or infection no erythema. Right breast normal. No rashes are noted bilaterally. No nipple discharge. Respiratory: No respiratory distress. Painless inspiration. Breath sounds normal. No wheezes/rales/rhonchi noted. Chest nontender. No accessory muscle usage noted or decreased air movement noted. History of partially collapsed lung on the right side. Abdomen: Soft and nontender. Bowel sounds normal in all 4 quadrants. No distention noted. No organomegaly noted. No visible injury noted. Back: No costovertebral angle tenderness. Full range of motion noted. Skin: Skin warm and dry. Normal skin color. Normal skin turgor. No rashes/lesions/lacerations noted. Extremities: No lower extremity edema. Extremities exhibit normal range of motion. Extremities nontender. Neuro: Oriented X 3. No motor deficit. No sensory deficit. Reflexes normal. Results Reviewed Results Reviewed: - Labs: Previous phosphate level was 0.7. On April 21, 2024, the phosphate level was 2.2. - Tests and Diagnostics: A test one month ago was negative for bacterial vaginosis but positive for yeast. Coding Level of Care Code New Pt Level 4 (56046) New Pt Prev Care 18-39yr(87896 Diagnoses Annual physical exam Z00.00 Left breast lump N63.20 Gastroparesis K31.84 Hypophosphatemia E83.39 Hyperlipidemia E78.5 Type 2 diabetes mellitus with hemoglobin A1c goal of less than 7.0% E11.9 Arnold-Chiari malformation, type I G93.5 ADHD F90.9 Enlarged thyroid E04.9 Deviated septum J34.2 Bilateral foot pain M79.671; M79.672 Vaginitis and vulvovaginitis N76.0 Cervical cancer screening Z12.4 Additional Codes PHQ-9 - 54511 - PHQ-9 Billing: Yes ([id number]) MARYAM-7 Assessment Billing - MARYAM-7 Assessment Tool: MARYAM-7 Assessment 25031 ([id number]) Time Spent (min) 60 Assessment & Plan Assessment & Plan (1) Annual physical exam: Code(s): Z00.00 - Encounter for general adult medical examination without abnormal findings Category: Medical Plan: The visit will serve as the patient's annual physical to establish care. Ordered comprehensive blood work including CBC, CMP, magnesium, cholesterol panel, hemoglobin A1c, thyroid studies, and a phosphate level. A urine sample and a self-collected vaginal swab for NAAT were obtained. Referral to [facility] for cervical cancer screening is placed. Patient will follow up in 3 months. (2) Left breast lump: Comment: at 3 O'clock Code(s): N63.20 - Unspecified lump in the left breast, unspecified quadrant Category: Medical Plan: The patient reports a painful breast lump present for a couple of months, which is also tender on examination. A diagnostic mammogram and a targeted breast ultrasound are ordered for further evaluation. (3) Gastroparesis: Code(s): K31.84 - Gastroparesis Category: Medical Plan: The patient has a history of gastroparesis and associated malabsorption, leading to hypophosphatemia. A referral to Gastroenterology for ongoing management will be placed. Prescriptions for dicyclomine (Bentyl) will be refilled. (4) Hypophosphatemia: Code(s): E83.39 - Other disorders of phosphorus metabolism Category: Medical Plan: The patient has a history of gastroparesis and associated malabsorption, leading to hypophosphatemia. A referral to Gastroenterology for ongoing management will be placed. Prescriptions for dicyclomine (Bentyl) will be refilled. (5) Hyperlipidemia: Code(s): E78.5 - Hyperlipidemia, unspecified Category: Medical Plan: Will continue current therapy with atorvastatin 80 mg and ezetimibe 10 mg. A referral to cardiology will be placed for management of hyperlipidemia and further evaluation of a previously noted potential partial blockage. (6) Type 2 diabetes mellitus with hemoglobin A1c goal of less than 7.0%: Code(s): E11.9 - Type 2 diabetes mellitus without complications Category: Medical Plan: The patient has insulin resistance secondary to gastroparesis, managed with metformin 500 mg twice daily. Will attempt to send a prescription for a continuous glucose monitor (CGM), preferably Dexcom or Megan 3, to assist with monitoring given her work constraints. If the CGM is not covered by insurance, the patient will continue with test strips. (7) Arnold-Chiari malformation, type I: Code(s): G93.5 - Compression of brain Category: Medical Plan: A referral to neurology will be placed for management of her type 1 Arnold- Chiari malformation and associated migraines. Refills for zolmitriptan and tizanidine will be provided. (8) ADHD: Comment: On Adderall Code(s): F90.9 - Attention-deficit hyperactivity disorder, unspecified type Category: Medical Plan: A one-month supply of her Adderall will be prescribed as a bridge. Referrals to a psychiatrist for ongoing medication management and to a therapist are placed. (9) Enlarged thyroid: Code(s): E04.9 - Nontoxic goiter, unspecified Category: Medical Plan: An enlarged thyroid was noted on physical exam, and the patient reports a family history of thyroid issues. An ultrasound of the thyroid is ordered to further evaluate. (10) Deviated septum: Code(s): J34.2 - Deviated nasal septum Category: Medical Plan: Asthma: Refill for albuterol will be sent. Deviated Septum/Recurrent Infections: A referral to an ENT specialist is placed for evaluation of a deviated septum and chronic infections. Bilateral foot pain: A referral to Podiatry is placed for evaluation. Recurrent Vulvovaginal Candidiasis: Will await results of the vaginal swab before initiating treatment. (11) Bilateral foot pain: Code(s): M79.671 - Pain in right foot; M79.672 - Pain in left foot Category: Medical Plan: Asthma: Refill for albuterol will be sent. Deviated Septum/Recurrent Infections: A referral to an ENT specialist is placed for evaluation of a deviated septum and chronic infections. Bilateral foot pain: A referral to Podiatry is placed for evaluation. Recurrent Vulvovaginal Candidiasis: Will await results of the vaginal swab before initiating treatment. (12) Vaginitis and vulvovaginitis: Code(s): N76.0 - Acute vaginitis Category: Medical Plan: Asthma: Refill for albuterol will be sent. Deviated Septum/Recurrent Infections: A referral to an ENT specialist is placed for evaluation of a deviated septum and chronic infections. Bilateral foot pain: A referral to Podiatry is placed for evaluation. Recurrent Vulvovaginal Candidiasis: Will await results of the vaginal swab before initiating treatment. (13) Cervical cancer screening: Code(s): Z12.4 - Encounter for screening for malignant neoplasm of cervix Category: Medical Plan: Will refer to automotive sales associate for cervical cancer screening. Plan Plan Patient was informed and verbally consented to the use of an ambient scribe for clinic note documentation during this visit. 1. Wellness Visit And Health Maintenance The visit will serve as the patient's annual physical to establish care. Ordered comprehensive blood work including CBC, CMP, magnesium, cholesterol panel, hemoglobin A1c, thyroid studies, and a phosphate level. A urine sample and a self-collected vaginal swab for NAAT were obtained. Referral to [facility] for cervical cancer screening is placed. Patient will follow up in 3 months. 2. Breast Lump The patient reports a painful breast lump present for a couple of months, which is also tender on examination. A diagnostic mammogram and a targeted breast ultrasound are ordered for further evaluation. 3. Gastroparesis And Hypophosphatemia The patient has a history of gastroparesis and associated malabsorption, leading to hypophosphatemia. A referral to Gastroenterology for ongoing management will be placed. Prescriptions for dicyclomine (Bentyl) will be refilled. 4. Hyperlipidemia Will continue current therapy with atorvastatin 80 mg and ezetimibe 10 mg. A referral to cardiology will be placed for management of hyperlipidemia and further evaluation of a previously noted potential partial blockage. 5. Type 2 Diabetes Mellitus With Insulin Resistance The patient has insulin resistance secondary to gastroparesis, managed with metformin 500 mg twice daily. Will attempt to send a prescription for a continuous glucose monitor (CGM), preferably Dexcom or Megan 3, to assist with monitoring given her work constraints. If the CGM is not covered by insurance, the patient will continue with test strips. 6. Arnold-Chiari Malformation And Migraines A referral to neurology will be placed for management of her type 1 Arnold- Chiari malformation and associated migraines. Refills for zolmitriptan and tizanidine will be provided. 7. Attention-Deficit/Hyperactivity Disorder (Adhd) A one-month supply of her Adderall will be prescribed as a bridge. Referrals to a psychiatrist for ongoing medication management and to a therapist are placed. 8. Enlarged Thyroid An enlarged thyroid was noted on physical exam, and the patient reports a family history of thyroid issues. An ultrasound of the thyroid is ordered to further evaluate. 9. Other Conditions And Referrals Asthma: Refill for albuterol will be sent. Deviated Septum/Recurrent Infections: A referral to an ENT specialist is placed for evaluation of a deviated septum and chronic infections. Bilateral foot pain: A referral to Podiatry is placed for evaluation. Recurrent Vulvovaginal Candidiasis: Will await results of the vaginal swab before initiating treatment. I discussed with the patient that we would treat this visit as her annual phy sical and to establish care. I explained the plan for comprehensive lab work, including CBC, CMP, cholesterol, A1c, thyroid function, and phosphate levels. We reviewed her extensive medical history and determined that multiple specialist referrals are necessary, including to Cardiology, Gastroenterology, Neurology, Podiatry, ENT, Psychiatry, and [facility]. I informed her that I would provide a one-month bridge prescription for her Adderall while she establishes care with a psychiatrist. Regarding the painful breast lump, I explained the need for a diagnostic mammogram and a focused ultrasound instead of a routine screening mammogram. I also explained that because I felt her thyroid was enlarged on exam, and given her maternal family history, I would order a thyroid ultrasound for further evaluation. We discussed an attempt to get a Continuous Glucose Monitor covered by her insurance to help manage her diabetes, but acknowledged it may be denied as she is not on insulin. I instructed her to contact the office if she does not hear from any of the referral departments within a month. We agreed to a follow-up appointment in three months to review all results and progress on specialist consultations. Orders: Orders C Reactive Protein Today Z00.00 - Encounter for general adult medical examination without abnormal findings Comprehensive [place]. Panel Fast Today Z00.00 - Encounter for general adult medical examination without abnormal findings Lipid Panel Today Z00.00 - Encounter for general adult medical examination without abnormal findings Phosphorus Today Z00.00 - Encounter for general adult medical examination without abnormal findings TSH reflex Free T4 Today Z00.00 - Encounter for general adult medical examination without abnormal findings Vitamin B12 and Folate Today Z00.00 - Encounter for general adult medical examination without abnormal findings Erythrocyte Sedimentation Rate Today Z00.00 - Encounter for general adult medical examination without abnormal findings MM diagnostic mammo BI Today N63.20 - Unspecified lump in the left breast, unspecified quadrant US thyroid Today E04.9 - Nontoxic goiter, unspecified Bacterial Vaginosis Panel Today N76.0 - Acute vaginitis CT NG by PCR Urine Today Z76.89 - Persons encountering health services in other specified circumstances Complete Blood Count Auto Diff Today Z00.00 - Encounter for general adult medical examination without abnormal findings Hemoglobin A1c Today Z00.00 - Encounter for general adult medical examination without abnormal findings Magnesium Today Z00.00 - Encounter for general adult medical examination without abnormal findings Liver Panel Today Z00.00 - Encounter for general adult medical examination without abnormal findings Vitamin D 25-OH Total Today Z00.00 - Encounter for general adult medical examination without abnormal findings US breast LT limited Today N63.20 - Unspecified lump in the left breast, unspecified quadrant Referrals Psychiatry Referral F90.9 - Attention-deficit hyperactivity disorder, unspecified type Counseling Referral F90.9 - Attention-deficit hyperactivity disorder, unspecified type Podiatry Referral M79.671 - Pain in right foot, M79.672 - Pain in left foot Cardiology Referral E78.00 - Pure hypercholesterolemia, unspecified, E78.5 - Hyperlipidemia, unspecified, E83.39 - Other disorders of phosphorus metabolism Ear/Nose/Throat Referral J34.2 - Deviated nasal septum ACCOUNT RECEIVABLE CLERK Referral Z12.4 - Encounter for screening for malignant neoplasm of cervix Neurology Referral G93.5 - Compression of brain Gastroenterology Referral K31.84 - Gastroparesis Medications: New blood-glucose sensor (Dexcom G7 Sensor device) check glucose TIF with meals and at bedtime 1 ea 1RF E11.9 - Type 2 diabetes mellitus without complications blood-glucose,vaccine customer representative,cont (Dexcom G7 White Lead Grinder) check glucose TID with meals and at bedtime 1 ea 1RF E11.9 - Type 2 diabetes mellitus without complications Patient Instructions: - This visit is being counted as your annual physical exam. - Please go to the lab to have your blood drawn for the tests we ordered. It is best to fast before you go. - Please perform the self-collected vaginal swab in the clinic bathroom today to check for infection. - We are placing referrals for you to see several specialists: Cardiology (heart), Gastroenterology (stomach/digestion), Neurology (nerves/brain), Podiatry (feet), ENT (ear, nose, and throat), Psychiatry (for ADHD medication), and COLLET MAKER (women's health). Their offices will contact you to schedule appointments. - If you do not hear from a specialist's office within one month, please call our office to let us know. - We have ordered a diagnostic mammogram and a special ultrasound for the lump in your breast. Please schedule this imaging. - We have also ordered an ultrasound of your thyroid gland. Please schedule this as well. - We will send refills for your current medications to your pharmacy. This may take some time to complete. - We have sent a prescription for a glucose monitoring device (CGM) [facility]. Your insurance may not approve it, but we will try. - Please schedule a follow-up appointment with our office in 3 months.
[2025-03-23 10:30] VITALS: BP 112/55; PULSE 73; RESP 16; TEMP 36.9; O2SAT 98; BMI 37.5
--- OUTSIDE RECORDS SUMMARY | 2025-03-23 11:39 | XMS_ITS | Encounter Summary ---
Author Organization [facility] Address [address] [place] [address] Care Team Providers Care Diesel Roller Operator Name Role Phone Unavailable Primary Care Provider Unavailabl e Encounter Details Date Type Department Care Team ([facility] st Contact Info) Description 04/23/2021 Erroneous Encounter [facility] CONVERSION DEPT [address] [place] [address] Nati Xie, [facility] [address] [place], [place] [id number] Social History Tobacco Use Types Packs/Day Years [...]
--- OUTSIDE RECORDS SUMMARY | 2025-03-23 11:39 | XMS_ITS | Encounter Summary ---
Author Organization [facility] Address [address] [place] [address] Care Team Providers Care Manager Core Name Role Phone Unavailable Primary Care Provider Unavailabl e Encounter Details Date Type Department Care Team (Late st Contact Info) Description 01/14/2022 Scanned Document [facility] [address] [place] [phone] Mara Stanford PA-C [address] [place] [address] Social History Tobacco Use Types Packs/Day Years [...]
--- OUTSIDE RECORDS SUMMARY | 2025-03-23 11:39 | XMS_ITS | Clinical Summary ---
Author Organization [facility] [address] ity Address [address] [place] [address] Care Team Providers Care Street Commissioner Name Role Phone Paco Araujo MD Primary Care Provider Surgical History Surgery Date Site/Laterality Comments SECTION PROCEDURE: [place] DELIVERY ONLY; COMMENT: x2 EYE SURGERY 2015 PROCEDURE: HISTORICAL EYE SURGERY; COMMENT: glaucoma Medical History Medical History Date Comments Arnold-Chiari malformation, type II ([facility] V24, [facility] V28) DX:Arnold-Chiari malformati on, type II ([facility]) ADHD (attention deficit hype ractivity disorder) DX:ADHD (attention deficit h yperactivity disorder) Bipolar 1 disorder ([facility] V24, [facility] V28) DX:Bipolar 1 disorder ([facility]) Depression DX:Depression Anxiety DX:Anxiety Migraines DX:Migraines [...] Comments Cervical Cancer Screening: Pap Smear 2006 HPV Vaccines (1 - 3-dose SCDM series) 2012 DTaP,Tdap,and Td Vaccines (7 - Td or Tdap) 11/13/2018 11/13/2008, 03/24/2000, 01/27/1994, Additional history exists Depression Screening 05/24/2024 COVID-19 Vaccine ( - season) 2025 Influenza Vaccine (#1) 2025 RSV Immunization Adult Patients (1 - 1-dose 75+ series) 2060 HIB Vaccines Completed 12/10/1987 IPV Vaccines Completed 07/27/1990, 11/21, 12/10/1987, Additional history exists MMR Vaccines Completed 01/14/1998, 03/25/1987 Hepatitis B Vaccines Completed 11/06/1999, 07/04/1998, 06/16/1997 Hepatitis A Vaccines Aged Out No long [...] age to complete this topic Care Teams Street Commissioner Relationship Specialty Start Date End Date Paco Araujo MD [address] [place] [id number] PCP - General Internal Medicine 01/23/25
--- OUTSIDE RECORDS SUMMARY | 2025-03-23 11:39 | XMS_ITS | Clinical Summary ---
Author Organization [facility] Address [address] [place] [address] Care Team Providers Care Operating Room Assistant Name Role Phone Unavailable Primary Care Provider Unavailabl e Allergies Active Allergy Reactions Criticality Noted Date Comments Carbamazepine Rash/Dermatitis Low 03/27/2015 Clindamycin Phos-Benzoyl Perox Shortness Of Breath High 09/18/2016 [place] Other (See Comments) 03/14/2015 Pneumococcal Vaccines Other [...] patient's age to complete this topic Insurance [facility] THE [facility] THE TOR
== END 2025-03-23 11:20 | disposition home or self-care (01) ==
LOC: HO.HMCSH 10:19
PROVIDERS: Visit Provider Physician Assistant Medical
DX: Z00.00 Encounter for general adult medical examination without abnormal findings (principal); N76.0 Acute vaginitis; E11.43 Type 2 diabetes mellitus with diabetic autonomic (poly)neuropathy; G93.5 Compression of brain; N63.20 Unspecified lump in the left breast, unspecified quadrant; K31.84 Gastroparesis; E83.39 Other disorders of phosphorus metabolism; E78.5 Hyperlipidemia, unspecified; F90.9 Attention-deficit hyperactivity disorder, unspecified type; E04.9 Nontoxic goiter, unspecified; J34.2 Deviated nasal septum; M79.671 Pain in right foot; M79.672 Pain in left foot

== ENCOUNTER 2025-03-27 07:56 | Outpatient (REF) | payer OTHER, SELFPAY ==
--- OUTSIDE RECORDS SUMMARY | 2025-03-27 08:00 | XMS_ITS | Clinical Summary ---
Author Organization [facility] Address [address] [place] [address] Care Team Providers Care Coater Helper Name Role Phone Unavailable Primary Care Provider Unavailabl e Allergies Active Allergy Reactions Criticality Noted Date Comments Carbamazepine Rash/Dermatitis Low 03/27/2015 Clindamycin Phos-Benzoyl Perox Shortness Of Breath High 09/18/2016 [place] Other (See Comments) 03/14/2015 Pneumococcal Vaccines Other [...] patient's age to complete this topic Insurance [facility] THE [facility] THE TOR
--- OUTSIDE RECORDS SUMMARY | 2025-03-27 08:00 | XMS_ITS | Encounter Summary ---
Author Organization [facility] Address [address] [place] [address] Care Team Providers Care Product Transfer Pumper Name Role Phone Unavailable Primary Care Provider Unavailabl e Encounter Details Date Type Department Care Team (Late st Contact Info) Description 01/14/2022 Scanned Document [facility] [address] [place] [phone] Mara Stanford PA-C [address] [place] [address] Social History Tobacco Use Types Packs/Day Years [...]
--- OUTSIDE RECORDS SUMMARY | 2025-03-27 08:00 | XMS_ITS | Encounter Summary ---
Author Organization [facility] Address [address] [place] [address] Care Team Providers Care Playground Attendant Name Role Phone Unavailable Primary Care Provider Unavailabl e Encounter Details Date Type Department Care Team ([facility] st Contact Info) Description 04/23/2021 Erroneous Encounter [facility] CONVERSION DEPT [address] [place] [address] Nati Xie, [facility] [address] [facility] [address] [facility] [address] [place], [place] [id number] Social History Tobacco Use Types Packs/Day Years [...]
--- OUTSIDE RECORDS SUMMARY | 2025-03-27 08:00 | XMS_ITS | Clinical Summary ---
Author Organization [facility] ity Address [address] [place] [address] Care Team Providers Care Vp Packaging Name Role Phone Paco Araujo MD Primary Care Provider [phone] Surgical History Surgery Date Site/Laterality Comments SECTION PROCEDURE: [place] DELIVERY ONLY; COMMENT: x2 EYE SURGERY 2015 PROCEDURE: HISTORICAL EYE SURGERY; COMMENT: glaucoma Medical History Medical History Date Comments Arnold-Chiari malformation, type II ([facility] V[facility], [facility] V28) DX:Arnold-Chiari malformati on, type II ([facility]) ADHD (attention deficit hype ractivity disorder) DX:ADHD (attention deficit h yperactivity disorder) Bipolar 1 disorder ([facility] V24, [facility] V28) DX:Bipolar 1 disorder ([facility]) Depression DX:Depression Anxiety DX:Anxiety Migraines [...] age to complete this topic Care Teams Vp Packaging Relationship Specialty Start Date End Date Paco Araujo MD [address] [place] [id number] PCP - General Internal Medicine 01/23/25
[2025-03-27 08:14] LABS: MANUAL DIFF FLAG NO
[2025-03-27 08:28] LABS: Hematocrit 40.0 % (37.0-47.0); Hemoglobin 13.4 g/dl (12.0-16.0); Imm Gran Abs Auto 0.01 X10*3/uL (0.00-0.03); Imm Gran Pct Auto 0.2 % (0.0-0.4); Lymphocytes Absolute Auto 1.7 X10*3/uL (1.2-4.9); Mean Corpuscular HGB Conc 33.5 g/dl (31.0-35.0); Mean Corpuscular Hemoglobin 31.5 pg (27.0-33.0); Mean Corpuscular Volume 93.9 fL (80.0-98.0); NRBC Abs Auto 0.000 X10*3/uL (0.0-0.012); NRBC Pct Auto 0.0 /100WBC (0.0-0.2); Platelet Count 308 X10*3/uL (160-400); Red Blood Count 4.26 X10*6/uL (4.20-5.50); White Blood Count 5.3 X10*3/uL (4.8-10.8)
[2025-03-27 09:01] LABS: Alanine Aminotransferase 23 U/L (0-31); Albumin Level 4.2 g/dL (3.5-5.0); Alkaline Phosphatase 84 U/L (39-117); Anion Gap 9 (12-20); Aspartate Amino Transferase 15 U/L (5-31); Blood Urea Nitrogen 14 mg/dL (9-16); Calcium 8.7 mg/dL (8.4-10.2); Carbon Dioxide 25 mmol/L (22-29); Chloride 111 mmol/L (96-108); Cholesterol 239 mg/dL (<200); Estimated Glomerular Filt Rate > 60; HDL Cholesterol 52 mg/dL (>40); Magnesium 2.0 mg/dL (1.6-2.6); Potassium 4.4 mmol/L (3.3-5.1); Sodium 141 mmol/L (135-145); Total Protein 7.0 g/dL (6.5-8.0); Triglycerides 117 mg/dL (<150)
[2025-03-27 09:24] LABS: Folate 9.0 ng/mL (> or = 4.0); Vitamin B12 193 pg/mL (200-900)
== END 2025-03-27 07:57 | disposition home or self-care (01) ==
LOC: HO.LAB 07:56
PROVIDERS: PCP Physician Assistant Medical; Visit Provider Physician Assistant Medical
DX: Z00.00 Encounter for general adult medical examination without abnormal findings (principal); Z13.29 Encounter for screening for other suspected endocrine disorder; Z13.1 Encounter for screening for diabetes mellitus; Z13.6 Encounter for screening for cardiovascular disorders
CPT/HCPCS: 36415; 80053; 80061; 80076; 82248; 82306; 82607; 82746; 83036; 83735; 84100; 84443; 85025; 85652; 86140

== ENCOUNTER 2025-03-28 09:28 | Outpatient (REF) | payer OTHER, SELFPAY | END 2025-03-28 09:29 | disposition home or self-care (01) | LOC: HO.LAB 09:28 | PROVIDERS: PCP Physician Assistant Medical; Visit Provider Advanced Practice Midwife | DX: Z13.89 Encounter for screening for other disorder (principal) ==

== ENCOUNTER 2025-03-28 09:28 | Outpatient (AMB) | payer OTHER, SELFPAY ==
--- NOTE | 2025-03-28 09:29 | A.OFFVIS_ITS ---
Vital Signs 3 03/28/25 09:38 Height 5 ft 3 in Weight 210 lb BMI 37.2 BP 120/76 Intake Visit Reasons: New patient yeast infection Intake Note: Patient complains of recurrent yeast infections since her cruise in December. Division Service Manager: Division Service Manager Present (Amina) Accompanied by: Self / Same As Patient Allergies carbamazepine (From Tegretol) Allergy (Mild, Verified 03/28/25 09:34) Rash lamotrigine (From Lamictal) Allergy (Mild, Verified 03/28/25 09:34) Rash Latex, Natural Rubber Allergy (Mild, Verified 03/28/25 09:34) Rash lithium Allergy (Mild, Verified 03/28/25 09:34) hypothyroidism pneumonia vaccine Allergy (Mild, Uncoded 03/23/25 11:22) cellulitis bitrex Adverse Reaction (Intermediate, Uncoded 03/23/25 11:22) throat swelling Medication List - Last Reconciled 03/28/25 by Catarina Wynn CNM albuterol sulfate 90 mcg/actuation (Ventolin HFA) 2 puffs inhalation Q6H PRN atorvastatin 80 mg PO BEDTIME blood-glucose sensor (Dexcom G7 Sensor device) check glucose TIF with meals and at bedtime blood-glucose,fire technology instructor,cont (Dexcom G7 Contamination Consultant) check glucose TID with meals and at bedtime cholecalciferol (vitamin D3) 1,250 mcg PO QWEEK 3 months cyanocobalamin (vitamin B-12) 1,000 mcg PO DAILY dextroamphetamine-amphetamine 20 mg 20 mg PO DAILY 90 days dextroamphetamine-amphetamine 30 mg ER 1 cap PO DAILY dicyclomine 20 mg PO TID PRN 90 days ezetimibe 10 mg PO DAILY famotidine 40 mg PO DAILY fluconazole 150 mg PO Q3D 3 days hydrocortisone 2.5% 1 appl [place] BID PRN meloxicam 15 mg PO DAILY metformin 500 mg PO BID 90 days ondansetron 4 mg PO TID PRN pantoprazole 40 mg PO BID 90 days terconazole 80 mg vaginal BEDTIME 3 days tizanidine 4 mg PO Q8H PRN ubrogepant (Ubrelvy) 100 mg PO DAILY zolmitriptan 5 mg PO DAILY PRN Is last menstrual period known: No Post menopausal: No Patient : No HPI HPI New patient yeast infection: Details: This was a lengthy visit for this patient where we discussed the many things that she has done and tried to treat her ongoing yeast infection. She has a Mirena IU S that she has had for some years and she is generally happy with that she recently moved from [place] with her partner. She had been on antibiotics, Augmentin for a sinus infection around the time she went on a cruise and she ended up with a severe yeast infection that she has not been able to totally eradicate she sometimes gets some improvement and then it gets worse again she has been treated with multiple doses of Diflucan. She also has been treating with miconazole 1 and terazole suppositories. Also she has been adding a type of barrier ointment that has a menthol and petroleum ingredients and provides some cooling relief. 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 Perspiration is an issue. She has diabetic currently on metformin she recently come a very recently just had a set of lab work done she is being referred for a pain in her breast and is awaiting diagnostic mammogram and ultrasound for that and she is awaiting endocrinology referrals as well she also has gastroparesis and other health concerns as well. [facility] Medical History (Updated 03/28/25 @ 10:50 by Catarina Wynn CNM) delivery delivered Vitamin B12 deficiency Enlarged thyroid Left breast lump Deviated septum Type 2 diabetes mellitus with hemoglobin A1c goal of less than 7.0% Pure hypercholesterolemia, unspecified Hypophosphatemia Hyperlipidemia Bilateral foot pain Gastroparesis Arnold-Chiari malformation, type I ADHD Cervical cancer screening Annual physical exam Encounter for assessment of STD exposure Vaginitis and vulvovaginitis Surgical History History of cholecystectomy (~2023) History of colonoscopy (~2023) Family History Father No problems noted. Mother COPD (chronic obstructive pulmonary disease) Heart problem Social History Housing: House Alcohol intake: current Alcohol intake frequency: does not drink Patient Tobacco Use Status: Never used Tobacco Patient : No service: No Current occupational status: employed Current occupation: [employer] employee Cognitive needs: No Hearing needs: No Vision needs: No Female Reproductive History Menstrual Age of Menarche: 11 control method: progestin IUCD (Mirena ) Total pregnancies: 3 Full term: 2 Ab induced: 1 History of abnormal pap smear: Yes Physical Exam Vital Signs: Last Vital Signs BP 120/76 03/28/25 09:38 BMI result Body Mass Index 37.2 Const General: healthy appearing, comfortable, no acute distress, well developed and alert Nutritional Appearance: average body habitus Orientation/consciousness: patient oriented x3 Limitations: no limitations HEENT Head: Yes normocephalic Neck Neck: Yes normal visual inspection Chest Other: The patient tried to pin point exactly where she feels the pain in her breast and she placed my finger on the spot but I could not feel any mass there she has diagnostic mammogram and ultrasound already requested from her primary care provider and is awaiting the scheduling of that. Chest palpation & inspection: normal inspection of the chest Breast/axilla inspection: normal inspection of the breasts and normal inspection of the axillae Breast/axilla palpation: normal palpation of the breasts and normal palpation of the axillae Resp Effort & Inspection: normal respiratory effort GI Inspection: Yes normal to inspection, No Abdominal wall edema and No distended Palpation (GI): Soft to palpation and nontender Other: External vagina external vagina is pink where skin is touching skin and the internal vulva area is bright red and inflamed and there is a curdy whitish greenish discharge consistent with yeast which is all throughout the vagina. Cervix is nulliparous string of Mirena was not easily visible but it was able to be teased out with Cytobrush. Cervix long close thick mobile nontender uterus small midposition mobile nontender adnexa nontender good tone with Kegel. General: Yes bladder normal to palpation External Female Exam: normal external appearance and normal appearance of the urethra Speculum Exam - Vagina: normal appearance of the vagina, normal palpation and normal vaginal discharge Speculum Exam - Cervix: normal appearance of the cervix, normal palpation and nontender Bimanual exam- vagina & uterus: normal bimanual exam, normal palpation, uterine size normal, bladder normal to palpation, consistency normal, normal palpation, uterine mobility normal, uterine shape normal, No Cervical tenderness present, non-tender and no cervical motion tenderness Bimanual Exam- Adnexa, other: normal adnexae, no masses, normal and No adnexal tenderness Female genitals images: 2 1. Entire vulva where skin touches skin and mucosa is abutting other mucosal services is inflamed and there is abundant yeast curd discharge Neuro General: patient oriented x3 Results Reviewed Results Reviewed: I reviewed other labs in her system with her. Assessment & Plan Assessment & Plan (1) Vaginitis and vulvovaginitis: Code(s): N76.0 - Acute vaginitis Category: Medical (2) Cervical cancer screening: Code(s): Z12.4 - Encounter for screening for malignant neoplasm of cervix Category: Medical (3) Type 2 diabetes mellitus with hemoglobin A1c goal of less than 7.0%: Code(s): E11.9 - Type 2 diabetes mellitus without complications Category: Medical (4) Well woman exam with routine gynecological exam: Code(s): Z01.419 - Encounter for gynecological examination (general) (routine) without abnormal findings Category: Medical (5) Presence of 52 mg levonorgestrel-releasing intrauterine device (IUD): Comment: Is on her 2nd or 3rd, this 1 was inserted 2021 or 2022, string visible 03/28/25. Code(s): Z97.5 - Presence of (intrauterine) contraceptive device Category: Social Hx Plan -----Discussed in this visit the following: healthy balanced diet, regular and consistent exercise, getting recommended health screens, doing the best she can for her particular health concerns, kegel exercises, pap smear screening and followup recommendations, mammography screening and SBE, normal changes in cycles in her life stage--- .----I reviewed her symptoms in detail, and the contributing factors that lead to growth of yeast including warm dark spaces, lack of air to body cavities and mucosal membrane, and elevated blood sugars. I reviewed what she can do to make things better in particular using cotton underwear, non-use of panty liners, allowing air to her vulva at night if at all possible. Use of cotton underwear that is not tight fitting was encouraged. Plain cool water rinsing/showering to area may be comforting. I reviewed use of the medications including Diflucan and cream as directed. --I reviewed that the most important thing at her case is to get her diabetes and her blood sugar under good control, (it does not appear to be very out of control at this moment) encouraged her to re-double her efforts in this regard, and to work with her primary care provider in adjusting any medication dosages if necessary, and following their recommendations for checking her blood sugar, following dietary recommendations, exercise goals, and trying to get things in control. I stressed that while a yeast infection is very very uncomfortable, and can be very problematic, it can be indicative of diabetes that is not under good control and could lead to further challenges for her health especially regarding blood vessels and kidney function and heart etc. So any efforts to get her diabetes under better control, may help more than just her yeast symptoms. 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 with the scrub uniforms and the very real challenges of her work environment and the challenges of dealing in warm situations with scrub clothing that does not breathe and ways to manage this with as much as possible 100% cotton clothing looser clothing strategic use of soft tissues to absorb perspiration and changing out underwear throughout the day if necessary use of cold water I recommend against the ointment that she was using and discussed how it traps the yeast microbes close to the skin and does not permit for air exchange and healing as much as possible I recommend cool water and exposure to air but she may have fluconazole to use at her discretion I gave 5 refills of that and miconazole 7 that she may use at her discretion as well I actually do recommend that she use that vaginally and try to allow close access of the cream to the mucosal surfaces. I swabbed some of the abundant kurds from the vagina so that when she does apply the cream there is a better access to the mucosal surfaces. She will be following up with her primary care provider on all the many plans that they have made and is awaiting other referrals and. studies as well. She will be discussing with future provider's how best to maximize her glucose control and weight. Medications: New 2 miconazole nitrate 2% (Miconazole-7) Use as needed as discussed for vaginal yeast infection. 1 appful vaginal BEDTIME 45 grams 4RF 7 days fluconazole may repeat second dose 72 hrs after first dose if symptoms persist 150 mg PO Q3D 2 tabs 5RF 2 doses Coding Level of Care Code New Pt Prev Care 18-39yr([id number] Diagnoses Vaginitis and vulvovaginitis N76.0 Cervical cancer screening Z12.4 Type 2 diabetes mellitus with hemoglobin A1c goal of less than 7.0% E11.9 Well woman exam with routine gynecological exam Z01.419 Presence of 52 mg levonorgestrel-releasing intrauterine device (IUD) Z97.5
[2025-03-28 09:38] VITALS: BP 120/76; BMI 37.2
--- OUTSIDE RECORDS SUMMARY | 2025-03-28 10:34 | XMS_ITS | Clinical Summary ---
Author Organization [facility] ity Address [address] [place] [address] Care Team Providers Care Environmental Change Analyst Name Role Phone Paco Araujo MD Primary Care Provider [phone] Surgical History Surgery Date Site/Laterality Comments SECTION PROCEDURE: [place] DELIVERY ONLY; COMMENT: x2 EYE SURGERY 2015 PROCEDURE: HISTORICAL EYE SURGERY; COMMENT: glaucoma Medical History Medical History Date Comments Arnold-Chiari malformation, type II ([facility] V24, [facility] V28) DX:Arnold-Chiari malformati on, type II ([facility]) ADHD (attention deficit hype ractivity disorder) DX:ADHD (attention deficit h yperactivity disorder) Bipolar 1 disorder ([facility] V24, [facility] V28) DX:Bipolar 1 disorder ([facility]) Depression DX:Depression Anxiety DX:Anxiety Migraines DX:Migraines IUD [...] age to complete this topic Care Teams Environmental Change Analyst Relationship Specialty Start Date End Date Paco Araujo MD [address] [place] [id number] PCP - General Internal Medicine 01/23/25
--- OUTSIDE RECORDS SUMMARY | 2025-03-28 10:34 | XMS_ITS | Clinical Summary ---
Author Organization [facility] Address [address] [place] [address] Care Team Providers Care Processing Talc And Borate Supervisor Name Role Phone Unavailable Primary Care Provider Unavailabl e Allergies Active Allergy Reactions Criticality Noted Date Comments Carbamazepine Rash/Dermatitis Low 03/27/2015 Clindamycin Phos-Benzoyl Perox Shortness Of Breath High 09/18/2016 [place] Other (See Comments) 03/14/2015 Pneumococcal Vaccines Other [...] patient's age to complete this topic Insurance [facility] [place] [address] [facility] [place] [address]
--- OUTSIDE RECORDS SUMMARY | 2025-03-28 10:34 | XMS_ITS | Encounter Summary ---
Author Organization [facility] Address [address] [place] [address] Care Team Providers Care Electronic Plotting System Operator Name Role Phone Unavailable Primary Care Provider Unavailabl e Encounter Details Date Type Department Care Team (Late st Contact Info) Description 01/14/2022 Scanned Document [facility] [address] [place] [phone] Mara Stanford PA-C [address] [place] [address] Social History Tobacco Use Types Packs/Day Years [...]
== END 2025-03-28 13:22 | disposition home or self-care (01) ==
LOC: HO.HWSM 09:28
PROVIDERS: PCP Physician Assistant Medical; Visit Provider Advanced Practice Midwife
DX: Z01.419 Encounter for gynecological examination (general) (routine) without abnormal findings (principal); N76.0 Acute vaginitis; E11.9 Type 2 diabetes mellitus without complications; Z97.5 Presence of (intrauterine) contraceptive device
CPT/HCPCS: 99385; 99459

== ENCOUNTER 2025-03-28 14:40 | Outpatient (REF) | payer OTHER, SELFPAY ==
[2025-03-29 15:14] LABS: Bacterial Vaginosis PCR NEGATIVE (Negative); Candida Group PCR DETECTED (Not Detect); Candida glab krusei PCR NOT DETECTED (Not Detect); Trichomonas vaginalis PCR NOT DETECTED (Not Detect)
[2025-03-29 15:39] LABS: CT PCR NOT DETECTED (Not Detect.); NG PCR NOT DETECTED (Not Detect.)
== END 2025-03-28 14:41 | disposition home or self-care (01) ==
LOC: HO.LNP 14:40
PROVIDERS: Visit Provider Advanced Practice Midwife
DX: Z01.419 Encounter for gynecological examination (general) (routine) without abnormal findings (principal); N76.0 Acute vaginitis; Z20.2 Contact with and (suspected) exposure to infections with a predominantly sexual mode of transmission; Z11.51 Encounter for screening for human papillomavirus (HPV)
CPT/HCPCS: 81515; 87491; 87591; 87626; 88175

== ENCOUNTER 2025-04-10 14:58 | Outpatient (REF) | payer OTHER, SELFPAY ==
--- NOTE | ~2025-04-10 | US_ITS ---
EXAMINATION: US THYROID CLINICAL INFORMATION: Nontoxic goiter, unspecified. 39-year-old female. COMPARISON: None available. TECHNIQUE: Linear transducer grayscale and color Doppler examination with attention to the region of the thyroid. FINDINGS: SIZE: Measurements of the thyroid lobes and nodules are given in sagittal, anteroposterior and transverse dimensions respectively. Right Thyroid Lobe: 5.7 x 1.7 x 1.8 cm, volume 9.36 mL. Parenchyma: The gland echotexture is normal. Thyroid vascularity is normal. Left Thyroid Lobe: 5.0 x 1.6 x 2.0 cm, volume 8.4 mL. Parenchyma: The gland echotexture is normal. Thyroid vascularity is normal. Isthmus: 0.4 cm in maximum AP dimension. Estimated total number of nodules greater than or equal to 1 cm: 1. Acute Care Surgeon nodules are described as follows: 1. Location: Left lower pole. Size: 1.3 x 1.0 x 1.2 cm, volume 0.8 mL. Nodule characteristics: Composition: Mixed cystic and solid (1). Echogenicity: Cannot be determined (1). Shape: Not taller than wide (0). Margins: Smooth (0). Echogenic Foci: None (0). ACR TI-RADS total points: 2 ACR TI-RADS category: 2 NODES: No lymphadenopathy is seen in the tissue surrounding the thyroid gland. US/US thyroid IMPRESSION: 1. There is a 1.3 cm TR Category 2 nodule in the left lower pole, benign. No follow-up is recommended. 2. Thyroid is otherwise normal in appearance. ACR TI-RADS RECOMMENDATION REFERENCE: Ultrasound-guided fine-needle aspiration, followup ultrasound, no further follow up. * TR1 (0 point) and TR2 (2 points): No FNA or follow up. * TR3 (3 points): FNA if more than or equal to 2.5 cm in maximum dimension, followup ultrasound in 1, 3 and 5 years if 1.5 to 2.4 cm in maximum dimension. * TR4 (4-6 points): FNA if more than or equal to 1.5 cm in maximum dimension, followup ultrasound in 1, 2, 3 and 5 years if 1 to 1.4 cm in maximum dimension. * TR5 (more than or equal to 7 points): FNA if more than or equal to 1 cm in maximum dimension, followup ultrasound every year for 5 years if 0.5 to 0.9 cm in maximum dimension. * TR3, TR4 or TR5 nodules that are below the size threshold for followup receive no follow up. Electronically signed by: Stef Mcleod MD 04/10/2025 04:18 PM ANDREW ARELLANO
--- OUTSIDE RECORDS SUMMARY | 2025-04-11 12:59 | XMS_ITS | Encounter Summary ---
Author Organization Formerly [facility] Address [address] [place] [address] Care Team Providers Care Hospital Administrator Name Role Phone Unavailable Primary Care Provider Unavailabl e Encounter Details Date Type Department Care Team (Late st Contact Info) Description 01/14/2022 Scanned Document [facility] [address] [place] [phone] Mara Stanford PA-C [address] [place] [address] Social History Tobacco Use Types Packs/Day Years [...]
--- OUTSIDE RECORDS SUMMARY | 2025-04-11 13:00 | XMS_ITS | Clinical Summary ---
Author Organization Formerly [facility] Address [address] [place] [address] Care Team Providers Care Electronic Instrument Trades Worker Name Role Phone Unavailable Primary Care Provider Unavailabl e Allergies Active Allergy Reactions Criticality Noted Date Comments Carbamazepine Rash/Dermatitis Low 03/27/2015 Clindamycin Phos-Benzoyl Perox Shortness Of Breath High 09/18/2016 [place] Other (See Comments) 03/14/2015 Pneumococcal Vaccines Other [...] patient's age to complete this topic Insurance [facility] THE [facility] THE [place]
--- OUTSIDE RECORDS SUMMARY | 2025-04-11 13:00 | XMS_ITS | Clinical Summary ---
Author Organization [facility] ity Address [address] [place] [address] Care Team Providers Care Inspector Final Assembly Mechanical Name Role Phone Paco Araujo MD Primary Care Provider [phone] Surgical History Surgery Date Site/Laterality Comments SECTION PROCEDURE: [place] DELIVERY ONLY; COMMENT: x2 EYE SURGERY 2015 PROCEDURE: HISTORICAL EYE SURGERY; COMMENT: glaucoma Medical History Medical History Date Comments Arnold-Chiari malformation, type II ([facility] V24, [facility] V28) DX:Arnold-Chiari malformati on, type II ([facility]) ADHD (attention deficit hype ractivity disorder) DX:ADHD (attention deficit h yperactivity disorder) Bipolar 1 disorder ([facility] V24, [facility] V28) DX:Bipolar 1 disorder ([facility]) Depression DX:Depression Anxiety DX:Anxiety Migraines [...] Depression Screening 05/24/2024 COVID-19 Vaccine ( - 2024- season) 2025 Influenza Vaccine (#1) 2025 RSV [...] age to complete this topic Care Teams Inspector Final Assembly Mechanical Relationship Specialty Start Date End Date Paco Araujo MD [address] [place] [id number] PCP - General Internal Medicine 01/23/25
== END 2025-04-10 14:59 | disposition home or self-care (01) ==
LOC: HO.US 14:58
PROVIDERS: PCP Physician Assistant Medical; Visit Provider Physician Assistant Medical
DX: E04.9 Nontoxic goiter, unspecified (principal)
CPT/HCPCS: 76536

== ENCOUNTER → 2025-04-10 15:03 | Outpatient (BNV) | payer OTHER, SELFPAY | PROVIDERS: PCP Physician Assistant Medical; Visit Provider Radiology Diagnostic Radiology | DX: E04.1 Nontoxic single thyroid nodule (principal) | CPT/HCPCS: 76536 ==

== ENCOUNTER 2025-04-23 11:03 | Outpatient (AMB) | payer OTHER, SELFPAY ==
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
[2025-04-23 11:11] VITALS: BMI 37.2
--- OUTSIDE RECORDS SUMMARY | 2025-04-23 14:27 | XMS_ITS | Encounter Summary ---
Author Organization [facility] Address [address] [place] [address] Care Team Providers Care Hose Mender Name Role Phone Unavailable Primary Care Provider Unavailabl e Encounter Details Date Type Department Care Team (Late st Contact Info) Description 01/14/2022 Scanned Document [facility] [address] [place] [phone] Mara Stanford PA-C [address] [place] [address] Social History Tobacco Use Types Packs/Day Years [...]
--- OUTSIDE RECORDS SUMMARY | 2025-04-23 14:27 | XMS_ITS | Clinical Summary ---
Author Organization [facility] Address [address] [place] [address] Care Team Providers Care Senior Statistical Programmer Name Role Phone Unavailable Primary Care Provider Unavailabl e Allergies Active Allergy Reactions Criticality Noted Date Comments Carbamazepine Rash/Dermatitis Low 03/27/2015 Clindamycin Phos-Benzoyl Perox Shortness Of Breath High 09/18/2016 [place] Other (See Comments) 03/14/2015 Pneumococcal Vaccines Other [...] patient's age to complete this topic Insurance [facility] THE [facility] [employer] THE T[employer]
--- OUTSIDE RECORDS SUMMARY | 2025-04-23 14:27 | XMS_ITS | Clinical Summary ---
Author Organization [facility] ity Address [address] [place] [address] Care Team Providers Care Senior Clerk Name Role Phone Paco Araujo MD Primary Care Provider [phone] Surgical History Surgery Date Site/Laterality Comments SECTION PROCEDURE: [place] DELIVERY ONLY; COMMENT: x2 EYE SURGERY 2015 PROCEDURE: HISTORICAL EYE SURGERY; COMMENT: glaucoma Medical History Medical History Date Comments Arnold-Chiari malformation, type II ([facility] V24, [facility] V28) DX:Arnold-Chiari malformati on, type II ([facility]) ADHD (attention deficit hype ractivity disorder) DX:ADHD (attention deficit h yperactivity disorder) Bipolar 1 disorder ([facility] V24, [facility] V28) DX:Bipolar 1 disorder ([facility]) Depression DX:Depression Anxiety DX:Anxiety Migraines DX:Migraines [...] age to complete this topic Care Teams Senior Clerk Relationship Specialty Start Date End Date Paco Araujo MD [address] [place] [id number] PCP - General Internal Medicine 01/23/25
== END 2025-04-23 11:38 | disposition home or self-care (01) ==
LOC: HO.HPODS 11:04
PROVIDERS: PCP Physician Assistant Medical; Visit Provider Student in an Organized Health Care Education/Training Program
DX: M79.671 Pain in right foot (principal); M79.672 Pain in left foot; M72.2 Plantar fascial fibromatosis; M76.821 Posterior tibial tendinitis, right leg; M77.30 Calcaneal spur, unspecified foot; M21.70 Unequal limb length (acquired), unspecified site; E11.9 Type 2 diabetes mellitus without complications
CPT/HCPCS: 99204

== ENCOUNTER 2025-04-26 14:41 | Outpatient (REF) | payer OTHER, SELFPAY ==
--- NOTE | ~2025-04-26 | XR_ITS ---
EXAMINATION: X-ray bilateral feet CLINICAL INFORMATION: Pain COMPARISON: None TECHNIQUE: Right foot 3 views. Left foot 3 views. FINDINGS: Right foot: No acute fracture, dislocation or suspicious bony lesion is identified Mild hallux valgus. No significant arthritic change or erosions. Small plantar and posterior calcaneal enthesopathy. No significant soft tissue swelling. No radiopaque foreign body. Left foot: No acute fracture, dislocation or suspicious bony lesion is identified Mild hallux valgus. No significant arthritic change or erosions. Moderate posterior insertional enthesopathy. Small plantar calcaneal enthesopathy. No significant soft tissue swelling. No radiopaque foreign body. XR/XR Foot Enmanuel 3V IMPRESSION: / No radiographic evidence of acute osseous findings. Mild bilateral hallux valgus. Bilateral calcaneal spurring. Electronically signed by: Pio Ackerman MD 04/27/2025 12:55 PM EST
--- OUTSIDE RECORDS SUMMARY | 2025-04-26 20:49 | XMS_ITS | Encounter Summary ---
Author Organization Formerly [facility] Address [address] [place] [address] Care Team Providers Care Medical Device Sales Consultant Name Role Phone Unavailable Primary Care Provider Unavailabl e Encounter Details Date Type Department Care Team (Late st Contact Info) Description 01/14/2022 Scanned Document [facility] [address] [place] [phone] Mara Stanford PA-C [address] [place] [address] Social History Tobacco Use Types Packs/Day Years [...]
--- OUTSIDE RECORDS SUMMARY | 2025-04-26 20:49 | XMS_ITS | Clinical Summary ---
Author Organization [facility] ity Address [address] [place] [address] Care Team Providers Care Desizing Machine Operator Name Role Phone Paco Araujo MD Primary Care Provider [phone] Surgical History Surgery Date Site/Laterality Comments SECTION PROCEDURE: [place] DELIVERY ONLY; COMMENT: x2 EYE SURGERY 2015 PROCEDURE: HISTORICAL EYE SURGERY; COMMENT: glaucoma Medical History Medical History Date Comments Arnold-Chiari malformation, type II ([facility] V24, [facility] V28) DX:Arnold-Chiari malformati on, type II ([facility]) ADHD (attention deficit hype ractivity disorder) DX:ADHD (attention deficit h yperactivity disorder) Bipolar 1 disorder ([facility] V24, [facility] V28) DX:Bipolar 1 disorder ([facility]) Depression DX:Depression Anxiety DX:Anxiety Migraines [...] age to complete this topic Care Teams Desizing Machine Operator Relationship Specialty Start Date End Date Paco Araujo MD [address] [place] [id number] PCP - General Internal Medicine 01/23/25
--- OUTSIDE RECORDS SUMMARY | 2025-04-26 20:49 | XMS_ITS | Clinical Summary ---
Author Organization [facility] Address [address] [place] [address] Care Team Providers Care Wellness Coordinator Name Role Phone Unavailable Primary Care Provider Unavailabl e Allergies Active Allergy Reactions Criticality Noted Date Comments Carbamazepine Rash/Dermatitis Low 03/27/2015 Clindamycin Phos-Benzoyl Perox Shortness Of Breath High 09/18/2016 [place] Other (See Comments) 03/14/2015 Pneumococcal Vaccines Other [...] patient's age to complete this topic Insurance [facility] THE [facility] THE TOR
== END 2025-04-26 14:42 | disposition home or self-care (01) ==
LOC: HO.XRAY 14:41
PROVIDERS: PCP Physician Assistant Medical; Visit Provider Student in an Organized Health Care Education/Training Program
DX: M79.671 Pain in right foot (principal); M79.672 Pain in left foot; M77.30 Calcaneal spur, unspecified foot; M72.2 Plantar fascial fibromatosis; M76.821 Posterior tibial tendinitis, right leg
CPT/HCPCS: 73630

== ENCOUNTER → 2025-04-26 14:44 | Outpatient (BNV) | payer OTHER, SELFPAY | PROVIDERS: PCP Physician Assistant Medical; Visit Provider Radiology Diagnostic Ultrasound | DX: M77.31 Calcaneal spur, right foot (principal); M77.32 Calcaneal spur, left foot; M20.11 Hallux valgus (acquired), right foot; M20.12 Hallux valgus (acquired), left foot | CPT/HCPCS: 73630 ==

== ENCOUNTER 2025-05-02 08:34 | Outpatient (AMB) | payer OTHER, SELFPAY ==
--- NOTE | 2025-05-02 08:37 | A.OFFVIS_ITS ---
Vital Signs 05/02/25 08:38 Height 5 ft 3 in Weight 216 lb 4 oz BMI 38.3 BP 110/72 Blood Pressure Location Lt brachial Position Sitting Pulse 84 Pulse Source Pulse Oximeter Pulse Oximetry (%) 100 Oxygen Delivery Method Room Air Intake Visit Reasons: INP-Compression of brain Intake Note: Compression of brain Mortgage Loan Officer Originator Required: No Accompanied by: Self / Same As Patient Allergies carbamazepine (From Tegretol) Allergy (Mild, Verified 05/02/25 08:38) Rash lamotrigine (From Lamictal) Allergy (Mild, Verified 05/02/25 08:38) Rash Latex, Natural Rubber Allergy (Mild, Verified 05/02/25 08:38) Rash lithium Allergy (Mild, Verified 05/02/25 08:38) hypothyroidism pneumonia vaccine Allergy (Mild, Uncoded 03/23/25 11:22) cellulitis bitrex Adverse Reaction (Intermediate, Uncoded 03/23/25 11:22) throat swelling HPI Comments Details: 39y/o Right handed female recently move from [place] and is establishing care. she has h/o of Chiari malformation 8 mm and does regular neuro follow ups. Her last MRI was about 5 years ago. she has h/o migraines,idiopathic hypersomnia, ADD, depression etc ( all eval done in [place]) she has 10-20 days/month migraines. triggered by loud noise, flashing lights , smells etc It is usually right temoral tight squeezing pain, with light and sound sensitivity 1 episode of visual aura . scotomas in right visual field she uses zolmitriptan , tizanidine wih meloxicam , heat pack etc. she tried aimovig- severe constipation- gastroparesis she has tried 2 sessions of Botox not much response. Tried imitrex , relpax, ibuprofen , tizanidine , ubrelvy , DHE propranalol, topiramate, amitriptyline, gabapentin ,depakote magnesium, aimovif, botox ( had difficulty getting appts every 3 mths) she has neck pain and tightness . she denies nay radicular pain , but has muscle spasms in posterior neck . she feels foggy when she looks down. Rare numbness in la hands . Gait- OK No dizziness occ vertigo . no double vision No speech issues - occ palilalia , word finding . [facility] Medical History (Updated 05/02/25 @ 09:03 by Zoila Morocho MD) Cervicalgia Chronic migraine without aura Leg length discrepancy Posterior tibial tendon dysfunction, right Calcaneal spur Plantar fasciitis Class 2 obesity with body mass index (BMI) of 37.0 to 37.9 in adult delivery delivered Vitamin B12 deficiency Enlarged thyroid Left breast lump Deviated septum Type 2 diabetes mellitus with hemoglobin A1c goal of less than 7.0% Pure hypercholesterolemia, unspecified Hypophosphatemia Hyperlipidemia Bilateral foot pain Gastroparesis Arnold-Chiari malformation, type I ADHD Cervical cancer screening Annual physical exam Encounter for assessment of STD exposure Vaginitis and vulvovaginitis Surgical History History of cholecystectomy (~2023) History of colonoscopy (~2023) Family History Father No problems noted. Mother COPD (chronic obstructive pulmonary disease) Heart problem Social History Housing: House Alcohol intake: current Alcohol intake frequency: does not drink Patient Tobacco Use Status: Never used Tobacco service: No Current occupational status: employed Current occupation: [employer] [place] Cognitive needs: No Hearing needs: No Vision needs: No Female Reproductive History Menstrual Age of Menarche: 11 Physical Exam Vital Signs: BMI result Body Mass Index 38.3 Const Orientation/consciousness: patient oriented x3 Eyes Pupils: Equal, round and reactive pupils present Neuro Other: severe neck tightness - restricted lateral movements Tightness in la cervical muscles General: patient oriented x3, gait normal, tone normal, moves all extremities and no focal motor deficits Cranial nerves: Yes Facial sensation intact/muscles of mastication intact, Yes Equal, round and reactive pupils present, Yes Bilaterally intact EOM present, Yes Nystagmus not present, Yes Normal facial strength present, Yes Midline tongue present, Yes Symmetric palate elevation present and Yes Ability to bilat erally elevate shoulders present Cognition (Neuro): normal cognition Gait exam (Neuro): Normal gait present Motor exam (neuro): 5/5 motor strength present throughout and Normal motor muscle tone present throughout Deep tendon reflexes (DTR's): Right triceps reflex intensity grade: 3+, Left triceps reflex intensity grade: 3+, Rt Biceps (C5, C6): 3+, Left biceps reflex intensity grade: 3+, Right brachioradialis reflex intensity grade: 3+, Left brachioradialis reflex intensity grade: 3+, Right patellar reflex intensity grade: 3+ and Left patellar reflex intensity grade: 3+ Coordination: [id number] test normal Assessment & Plan Assessment & Plan (1) Chronic migraine without aura: Code(s): G43.709 - Chronic migraine without aura, not intractable, without status migrainosus Category: Medical (2) Arnold-Chiari malformation, type I: Code(s): G93.5 - Compression of brain Category: Medical (3) Cervicalgia: Code(s): M54.2 - Cervicalgia Category: Medical Plan MRI Brain to assess Chiari 1 C spine C ray for neck pain Suggested Magnesium 400mg qhs Tizanidine 4mg 1/2 tab qhs Trial patient on BOTOX - will get prior auth PT for neck Cannot do Gepants due to gastroparesis Tried imitrex , relpax, ibuprofen , tizanidine , ubrelvy , DHE propranalol, topiramate, amitriptyline, gabapentin ,depakote magnesium, aimovif, botox Orders: Orders MR head/brain wo con Today G93.5 - Compression of brain XR cervical spine 3V Today M54.2 - Cervicalgia PT Evaluation and Treatment Today M54.2 - Cervicalgia Medications: New magnesium oxide 400 mg PO BEDTIME 30 tabs 6RF Refilled zolmitriptan 5 mg PO DAILY PRN 90 tabs 3RF migraine Discontinued ubrogepant (Ubrelvy) Discontinued Reason: Doctor's Order 100 mg PO DAILY 90 tabs 3RF Coding Level of Care Code New Pt Level 4 (14163) Complex visit Add On G2211 Diagnoses Chronic migraine without aura G43.709 Arnold-Chiari malformation, type I G93.5 Cervicalgia M54.2
[2025-05-02 08:38] VITALS: BP 110/72; PULSE 84; O2SAT 100; BMI 38.3
== END 2025-05-02 11:10 | disposition home or self-care (01) ==
LOC: HO.HSMS 08:35
PROVIDERS: PCP Physician Assistant Medical; Visit Provider Psychiatry & Neurology Neurology
DX: G43.709 Chronic migraine without aura, not intractable, without status migrainosus (principal); G93.5 Compression of brain; M54.2 Cervicalgia
CPT/HCPCS: 99204

== ENCOUNTER 2025-05-07 07:51 | Outpatient (AMB) | payer OTHER, SELFPAY ==
--- OUTSIDE RECORDS SUMMARY | 2025-05-07 07:57 | XMS_ITS | Encounter Summary ---
Author Organization [facility] Address [address] [place] [address] Care Team Providers Care Vat Cleaner Name Role Phone Unavailable Primary Care Provider Unavailabl e Encounter Details Date Type Department Care Team (Late st Contact Info) Description 01/14/2022 Scanned Document [facility] [address] [place] [id number] Mara Stanford PA-C [address] [place] [address] Social History Tobacco Use Types Packs/Day Years [...]
--- OUTSIDE RECORDS SUMMARY | 2025-05-07 07:57 | XMS_ITS | Clinical Summary ---
Author Organization [facility] ity Address [address] [place] [address] Care Team Providers Care Welt Stitcher Name Role Phone Paco Araujo MD Primary Care Provider [phone] Surgical History Surgery Date Site/Laterality Comments SECTION PROCEDURE: [place] DELIVERY ONLY; COMMENT: x2 EYE SURGERY 2015 PROCEDURE: HISTORICAL EYE SURGERY; COMMENT: glaucoma Medical History Medical History Date Comments Arnold-Chiari malformation, type II ([facility] V24, [facility] V28) DX:Arnold-Chiari malformati on, type II ([facility]) ADHD (attention deficit hype ractivity disorder) DX:ADHD (attention deficit h yperactivity disorder) Bipolar 1 disorder ([facility] V24, [facility] V28) DX:Bipolar 1 disorder ([facility]) Depression DX:Depression Anxiety DX:Anxiety Migraines [...] on file Sexual Orientation Not on file Plan of Treatment Health Maintenance Due Date [...] age to complete this topic Care Teams Welt Stitcher Relationship Specialty Start Date End Date Paco Araujo MD [address] [place] [id number] PCP - General Internal Medicine 01/23/25
--- OUTSIDE RECORDS SUMMARY | 2025-05-07 07:57 | XMS_ITS | Clinical Summary ---
Author Organization [facility] Address [address] [place] [address] Care Team Providers Care Medical Record Librarian Name Role Phone Unavailable Primary Care Provider Unavailabl e Allergies Active Allergy Reactions Criticality Noted Date Comments Carbamazepine Rash/Dermatitis Low 03/27/2015 Clindamycin Phos-Benzoyl Perox Shortness Of Breath High 09/18/2016 [place] Other (See Comments) 03/14/2015 Pneumococcal Vaccines Other [...] patient's age to complete this topic Insurance [facility] THE TOR
--- NOTE | 2025-05-07 07:59 | MHC.OFFVIS ---
Vital Signs 05/07/25 08:00 Height 5 ft 3 in Weight 215 lb 9.793 oz BMI 38.2 BP 108/70 Blood Pressure Location Lt brachial Position Sitting Intake Visit Reasons: Type 2 diabetes mellitus without complications Intake Note: Patient present today for Type 2 Diabetes Mellitus Last Diabetic eye exam: Last exam was around September 2024 Last Podiatry Visit: Last visit was last Wednesday Random Glucose: 101 mg/dl HgA1C: 5.3% 03/27/25 Electronic Design Engineer Required: No Accompanied by: Self / Same As Patient Allergies carbamazepine (From Tegretol) Allergy (Mild, Verified 05/07/25 08:04) Rash lamotrigine (From Lamictal) Allergy (Mild, Verified 05/07/25 08:04) Rash Latex, Natural Rubber Allergy (Mild, Verified 05/07/25 08:04) Rash lithium Allergy (Mild, Verified 05/07/25 08:04) hypothyroidism pneumonia vaccine Allergy (Mild, Uncoded 05/07/25 08:04) cellulitis bitrex Adverse Reaction (Intermediate, Uncoded 05/07/25 08:04) throat swelling Medication List - Last Reconciled 05/07/25 by Johanny Rao PA-C albuterol sulfate 90 mcg/actuation (Ventolin HFA) 2 puffs inhalation Q6H PRN atorvastatin 80 mg PO BEDTIME blood-glucose sensor (Dexcom G7 Sensor device) USE TO CHECK GLUCOSE THREE (3) TIMES DAILY WITH MEALS AND AT BEDTIME blood-glucose,manager strategy & account,cont (Dexcom G7 Alodize Machine Operator) check glucose TID with meals and at bedtime cholecalciferol (vitamin D3) 1,250 mcg PO QWEEK 3 months cyanocobalamin (vitamin B-12) 1,000 mcg PO DAILY dextroamphetamine-amphetamine 20 mg 20 mg PO DAILY 90 days dextroamphetamine-amphetamine 30 mg ER 1 cap PO DAILY [diabetic shoes and inserts please provide 1 pair of shoes and 1-3 pairs of inserts] dicyclomine 20 mg PO TID PRN 90 days ezetimibe 10 mg PO DAILY famotidine 40 mg PO DAILY fluconazole 150 mg PO Q3D 2 doses hydrocortisone 2.5% 1 appl RI BID PRN magnesium oxide 400 mg PO BEDTIME meloxicam 15 mg PO DAILY metformin 500 mg PO BID 90 days methylprednisolone (Medrol (Vaughn)) PO PER PKG DIR miconazole nitrate 2% (Miconazole-7) 1 appful vaginal BEDTIME 7 days ondansetron 4 mg PO TID PRN pantoprazole 40 mg PO BID 90 days terconazole 80 mg vaginal BEDTIME 3 days tizanidine 4 mg PO Q8H PRN zolmitriptan 5 mg PO DAILY PRN HPI HPI Type 2 diabetes mellitus without complications: Details: Pt is a 39 year old female who presents today to establish care regarding diabetes. She states she has had a hx of insulin resistance/prediabetes and then over the last year it went up. She cannot recall the exact number but believes her A1c got up to 6.5. She says that that point she was living in the [facility] and was unable to see an policy cancellation clerk. She says that she never had an appointment with a lighting fixtures decorator or a clinical educator. She states that they put her on metformin for at least the last couple years and had increase the dose. She is on 500 mg twice a day. She does not tolerate higher doses. Recently her PCP tried to put her on Mounjaro however, it was denied by insurance. She is monitoring her blood sugars with the Dexcom. She states that while she was living in the [facility] she had episodes of low blood sugars and can not tell me exactly how low but she would be symptomatic with it. cgm- 99% in range, hypoglycemia <1%. GMI 5.9%, avg glucose 109. She does have a history of gastroparesis that was caused by aimovig. She states that her stomach is better and she is interested in trying a GLP 1. She understands the risk of gastroparesis and worsening these symptoms but she is very frustrated with her body in her weight. She says that she has gained about 5 lb a month since moving back to [place] since September. She is frustrated and wants to try something to change. Fam hx of t1dm. Paternal uncle and aunts 5/8 had t1dm. [facility] Medical History (Updated 05/02/25 @ 09:03 by Zoila Morocho MD) Cervicalgia Chronic migraine without aura Leg length discrepancy Posterior tibial tendon dysfunction, right Calcaneal spur Plantar fasciitis Class 2 obesity with body mass index (BMI) of 37.0 to 37.9 in adult delivery delivered Vitamin B12 deficiency Enlarged thyroid Left breast lump Deviated septum Type 2 diabetes mellitus with hemoglobin A1c goal of less than 7.0% Pure hypercholesterolemia, unspecified Hypophosphatemia Hyperlipidemia Bilateral foot pain Gastroparesis Arnold-Chiari malformation, type I ADHD Cervical cancer screening Annual physical exam Encounter for assessment of STD exposure Vaginitis and vulvovaginitis Surgical History History of cholecystectomy (~2023) History of colonoscopy (~2023) Family History Father No problems noted. Mother COPD (chronic obstructive pulmonary disease) Heart problem Social History Housing: House Alcohol intake: current Alcohol intake frequency: does not drink Patient Tobacco Use Status: Never used Tobacco service: No Current occupational status: employed Current occupation: [employer] employee Cognitive needs: No Hearing needs: No Vision needs: No Female Reproductive History Menstrual Age of Menarche: 11 Physical Exam Vital Signs: Last Vital Signs BP 108/70 05/07/25 08:00 BMI result Body Mass Index 38.2 Const Orientation/consciousness: patient oriented x3 HEENT Ears: hearing grossly normal bilaterally Neck Thyroid: Thyroid normal Lymphatic: no lymphadenopathy noted Resp Auscultation: clear to auscultation bilaterally Cardio Rate: regular rate Rhythm: regular rhythm Heart sounds: S1 normal heart sound present and S2 normal heart sound present Skin General skin exam: no rashes or lesions noted Neuro General: patient oriented x3, gait normal and no focal motor deficits Results Reviewed Results Reviewed: Laboratory Tests 03/27/25 05/07/25 08:12 08:06 WBC 5.3 RBC 4.26 Hgb 13.4 Hct 40.0 Plt Count 308 Creatinine 0.78 Estimated GFR > 60 Glucose (Clinic) 101 Hemoglobin A1c % 5.3 AST 15 ALT 23 Triglycerides 117 Cholesterol 239 H LDL Cholesterol, Calc 164 H HDL Cholesterol 52 Assessment & Plan Assessment & Plan (1) Type 2 diabetes mellitus with hemoglobin A1c goal of less than 7.0%: Code(s): E11.9 - Type 2 diabetes mellitus without complications Category: Medical Plan: 55 minutes spent today in ekxi-mp-coit time reviewing the differences between type 1 and type 2 diabetes, the pathophysiology of diabetes, complications associated with diabetes including but not limited to neuropathy, kidney disease, blindness, amputations, increased risk of infections etc.. We reviewed signs and symptoms of hyper and hypoglycemia that would require emergent medical treatment Testing supplies ordered Labs ordered including C-peptide, antibodies We will try Trulicity. We discussed risks and benefits and adverse effects such as nausea, vomiting, constipation, diarrhea, increased risk of gastroparesis, pancreatitis etc. She will contact me and let me know how she does with this She will continue the metformin 500 mg twice a day I have referred her to our clinical educator and to lighting fixtures decorator. I have encouraged her to continue with increase physical activity We will do a follow up in about a month. Sooner if needed. Patient understands and agrees with this plan. (2) Class 2 obesity with body mass index (BMI) of 37.0 to 37.9 in adult: Code(s): E66.812 - Obesity, class 2; Z68.37 - Body mass index [BMI] 37.0-37.9, adult Category: Medical Plan: As listed above Orders: Orders Insulin Today E11.9 - Type 2 diabetes mellitus without complications, E66.812 - Obesity, class 2, Z68.37 - Body mass index [BMI] 37.0-37.9, adult C Peptide Today E11.9 - Type 2 diabetes mellitus without complications, E66.812 - Obesity, class 2, Z68.37 - Body mass index [BMI] 37.0-37.9, adult Islet Cell Antibody Scrn/Titer Today E11.9 - Type 2 diabetes mellitus without complications, E66.812 - Obesity, class 2, Z68.37 - Body mass index [BMI] 37.0-37.9, adult Glutamic acid decarboxylase Ab Today E11.9 - Type 2 diabetes mellitus without complications, E66.812 - Obesity, class 2, Z68.37 - Body mass index [BMI] 37.0-37.9, adult Referrals Diabetes Education Referral E11.9 - Type 2 diabetes mellitus without complications, E66.812 - Obesity, class 2, Z68.37 - Body mass index [BMI] 37.0-37.9, adult Community Artist Nutrition Referral E11.9 - Type 2 diabetes mellitus without complications, E66.812 - Obesity, class 2, E78.5 - Hyperlipidemia, unspecified, Z68.37 - Body mass index [BMI] 37.0-37.9, adult Medications: New blood sugar diagnostic (Contour Next Test Strips) use daily As directed 100 ea 0RF E11.9 - Type 2 diabetes mellitus without complications blood-glucose meter (Contour Next Meter) use daily as directed to monitor blood sugars 1 ea 0RF lancets (Microlet Lancet) use daily As directed to monitor glucose 100 ea 2RF E11.9 - Type 2 diabetes mellitus without complications dulaglutide (Trulicity) 0.75 mg (0.5 mL) subcut QWEEK 2 mL 3RF Refilled blood-glucose sensor (DexDaWanda G7 Sensor device) USE TO CHECK GLUCOSE THREE (3) TIMES DAILY WITH MEALS AND AT BEDTIME 9 ea 3RF E11.9 - Type 2 diabetes mellitus without complications Discontinued tirzepatide (Mounjaro) for 4 weeks Discontinued Reason: Doctor's Order 2.5 mg (0.5 mL) subcut QWEEK 2 mL 3RF E11.9 - Type 2 diabetes mellitus without complications Coding Level of Care Code New Pt Level 5 (98868) Add On Problem Visit Only Diagnoses Type 2 diabetes mellitus with hemoglobin A1c goal of less than 7.0% E11.9 Class 2 obesity with body mass index (BMI) of 37.0 to 37.9 in adult E66.812; Z68.37
[2025-05-07 08:00] VITALS: BP 108/70; BMI 38.2
[2025-05-07 08:19] LABS: Glucose, Whole Blood 101 mg/dL (60-115)
== END 2025-05-07 08:52 | disposition home or self-care (01) ==
PROVIDERS: PCP Physician Assistant Medical; Visit Provider Physician Assistant
DX: E11.9 Type 2 diabetes mellitus without complications (principal); E66.812 Obesity, class 2; Z68.37 Body mass index [BMI] 37.0-37.9, adult

== ENCOUNTER 2025-05-07 07:51 | Outpatient (REF) | payer OTHER, SELFPAY ==
--- NOTE | ~2025-05-07 | XR_ITS ---
EXAMINATION: XR CERVICAL SPINE CLINICAL INFORMATION: M54.2 - Cervicalgia COMPARISON: None available. TECHNIQUE: AP, lateral and atlantoodontoid views. FINDINGS: Craniocervical junction is intact. Small marginal osteophyte formation C5-6 and C6-7 levels. Decreased intervertebral disc height C5-6 and to a lesser extent C4-5. Probable 1 mm anterolisthesis C4-5. No acute cortical disruption. No lytic or blastic lesions. XR/XR cervical spine 3V IMPRESSION: Cervical spondylosis C5-6 and C6-7 levels with likely grade 1 anterolisthesis C4-5. Electronically signed by: Rickey Gaytan MD 05/07/2025 09:55 AM EST
== END 2025-05-07 07:52 | disposition home or self-care (01) ==
LOC: HO.XRAY 07:51
PROVIDERS: Absent Provider Psychiatry & Neurology Neurology; PCP Physician Assistant Medical; Visit Provider Physician Assistant
DX: E11.9 Type 2 diabetes mellitus without complications (principal); E66.812 Obesity, class 2; M54.2 Cervicalgia; Z68.37 Body mass index [BMI] 37.0-37.9, adult; Z79.84 Long term (current) use of oral hypoglycemic drugs
CPT/HCPCS: 36415; 72040; 82947; 83525; 84681; 86341

== ENCOUNTER → 2025-05-07 09:33 | Outpatient (BNV) | payer OTHER, SELFPAY | PROVIDERS: Absent Provider Psychiatry & Neurology Neurology; PCP Physician Assistant Medical; Visit Provider Radiology Diagnostic Radiology | DX: M47.812 Spondylosis without myelopathy or radiculopathy, cervical region (principal) | CPT/HCPCS: 72040 ==

== ENCOUNTER 2025-05-14 14:44 | Outpatient (REF) | payer OTHER, SELFPAY ==
--- NOTE | ~2025-05-14 | US_ITS ---
EXAMINATION(S): 1. MM DIAGNOSTIC DIGITAL BREAST TOMOSYNTHESIS, BILATERAL 2. TARGETED ULTRASOUND OF THE BILATERAL BREASTS CLINICAL INFORMATION: -N63.20 - Unspecified lump in the left breast, unspecified quadrant -Today patient also complained of right breast focal pain. -Right breast mole biopsy from the right lower areola in 2017. COMPARISON: None. This is a baseline study. TECHNIQUE: Digital breast tomosynthesis is performed in both the mediolateral oblique and craniocaudal views along with computer-aided detection (CAD). Synthesized 2D images are generated from the tomosynthesis. Spot compression tomosynthesis were obtained for the left breast. FINDINGS: BREAST COMPOSITION: There are scattered areas of fibroglandular density. RIGHT BREAST: No significant masses, suspicious calcifications or other abnormalities are seen. In particular, no suspicious findings adjacent to the triangular skin marker placed in the upper outer quadrant. Targeted ultrasound of the right breast was performed at the location of the focal pain as indicated by the patient. The survey throughout the upper outer quadrant did not reveal suspicious sonographic findings. LEFT BREAST: -Focal asymmetry in the upper outer quadrant middle depth persists with spot compression. - No suspicious calcifications or other abnormalities are seen. Targeted ultrasound of the left breast was performed at the location of the focal asymmetry and lump in the upper outer quadrant. The survey did not reveal suspicious sonographic findings. US/US Breast BI Limited Mamm Only IMPRESSION: RIGHT BREAST: Negative, no evidence of malignancy. Clinical follow-up is recommended. Otherwise, normal interval follow-up is recommended in 12 months. LEFT BREAST: Negative, no evidence of malignancy. Clinical follow-up is recommended. Otherwise, normal interval follow-up is recommended in 12 months. ASSESSMENT: BI-RADS: Category 1: Negative RECOMMENDATION: 1. Patient should be managed based on the clinical impression. 2. Otherwise, routine annual screening mammography. Results were provided to the patient at time of visit by the technologist. This patient's information was entered into a reminder system with a target due date for their next mammogram. Electronically signed by: Winifred Sterling MD 05/14/2025 03:47 PM [facility] [place]
--- OUTSIDE RECORDS SUMMARY | 2025-05-14 18:00 | XMS_ITS | Encounter Summary ---
Author Organization [facility] Address [address] [place] [address] Care Team Providers Care Professor Of Political Science Name Role Phone Unavailable Primary Care Provider Unavailabl e Encounter Details Date Type Department Care Team (Late st Contact Info) Description 01/14/2022 Scanned Document [facility] [address] [place] [phone] Mara Stanford PA-C [address] [place] [address] Social History Tobacco Use Types Packs/Day Years [...]
--- OUTSIDE RECORDS SUMMARY | 2025-05-14 18:00 | XMS_ITS | Clinical Summary ---
Author Organization [facility] Address [address] [place] [address] Care Team Providers Care Nurse Practical Name Role Phone Unavailable Primary Care Provider Unavailabl e Allergies Active Allergy Reactions Criticality Noted Date Comments Carbamazepine Rash/Dermatitis Low 03/27/2015 Clindamycin Phos-Benzoyl Perox Shortness Of Breath High 09/18/2016 [place] Other (See Comments) 03/14/2015 Pneumococcal Vaccines Other [...] Influenza Vaccine 12/22/2024 COVID-19 Vaccine (1 - 2024-2 6 season) 2025 HPV Vaccines (No Doses Required) Completed Pneumococcal Vaccine: Pediat manohar (0-5 Years) and At-Risk Patients (6 to 49 Years) Aged Out No longer eligible b ased on patient's age to complete this topic Insurance [facility] THE [facility] THE TOR
--- OUTSIDE RECORDS SUMMARY | 2025-05-14 18:00 | XMS_ITS | Clinical Summary ---
Author Organization [facility] ity Address [address] [place] [address] Care Team Providers Care Hide Shaker Name Role Phone Paco Araujo MD Primary Care Provider Surgical History Surgery Date Site/Laterality Comments SECTION PROCEDURE: [place] DELIVERY ONLY; COMMENT: x2 EYE SURGERY 2015 PROCEDURE: HISTORICAL EYE SURGERY; COMMENT: glaucoma Medical History Medical History Date Comments Arnold-Chiari malformation, type II ([facility] V24, [facility] V28) DX:Arnold-Chiari malformati on, type II ([facility]) ADHD (attention deficit hype ractivity disorder) DX:ADHD (attention deficit h yperactivity disorder) Bipolar 1 disorder ([facility] V24, [facility] V28) DX:Bipolar 1 disorder ([facility]) Depression DX:Depression Anxiety DX:Anxiety Migraines [...] age to complete this topic Care Teams Hide Shaker Relationship Specialty Start Date End Date Paco Araujo MD [address] [place] [id number] PCP - General Internal Medicine 01/23/25
== END 2025-05-14 14:45 | disposition home or self-care (01) ==
LOC: HO.MAMMO 14:44
PROVIDERS: PCP Physician Assistant Medical; Visit Provider Physician Assistant Medical
DX: N63.21 Unspecified lump in the left breast, upper outer quadrant (principal)
CPT/HCPCS: 76642; 77062; 77066

== ENCOUNTER → 2025-05-14 15:00 | Outpatient (BNV) | payer OTHER, SELFPAY | PROVIDERS: PCP Physician Assistant Medical; Visit Provider Radiology Body Imaging | DX: R92.8 Other abnormal and inconclusive findings on diagnostic imaging of breast (principal) | CPT/HCPCS: 76642; 77062; 77066 ==

== ENCOUNTER 2025-05-14 20:59 | Observation (INO) | payer OTHER, SELFPAY ==
--- NOTE | ~2025-05-14 | CT_ITS ---
CLINICAL HISTORY: RLQ abd Pain; Tender CT abdomen and pelvis with contrast Comparison: None provided Findings: The lung bases are clear. Cholecystectomy. Solid organs are unremarkable. No urolithiasis. No bowel obstruction, pneumoperitoneum, or pneumatosis. Appendix not definitely visualized and no secondary signs of acute appendicitis. Intrauterine device in place. Left adnexal cyst measures 3 cm. Right adnexal cyst measures 4.1 cm. Urinary bladder is underdistended limiting evaluation. The bones are intact. IMPRESSION: Bilateral adnexal cysts, the larger of which is on the right, measuring 4.1 cm. If this correlates to patient's symptoms, consider pelvic ultrasound for further characterization. Appendix not visualized. Correlate with surgical history. This document has been electronically signed by: Yoni Sorto MD on 05/15/2025 03:57:43
--- NOTE | ~2025-05-14 | US_ITS ---
CLINICAL HISTORY: RLQ Pain Tender; Bilat Cysts on CT; r o Torsion US pelvis transabdominal and transvaginal with Doppler Comparison: CT/SR - CT ABDOMEN PELVIS W IV CON - 05/15/25 01:51 EST Findings: Transabdominal scanning performed for overall anatomy. Transvaginal scanning performed for additional detail. Anteverted, anteflexed uterus is 9.1 cm length. Normal myometrium. Intrauterine device is partially seen. Right ovary 5.4 x 4.3 x 4.8 cm and contains a 4.3 x 3.3 x 3.8 cm simple cyst. Left ovary 3.5 x 2.3 x 1.6 cm and contain a 2.5 x 1.7 x 2.3 cm simple cyst. There is an internal calcification within the left ovary measuring 0.4 x 0.4 x 0.4 cm. Normal color Doppler with arterial/venous spectral tracing of both ovaries. No free fluid. IMPRESSION: Bilateral simple ovarian cysts, the larger on the right. No ovarian torsion. Advise follow-up with gynecology if symptoms persist. This document has been electronically signed by: Yoni Sorto MD on 05/15/2025 07:12:32
[2025-05-14 21:03] VITALS: BP 149/72; PULSE 87; RESP 18; TEMP 36.6; O2SAT 98; BMI 38.1
[2025-05-14 21:23] LABS: MANUAL DIFF FLAG NO
[2025-05-14 21:24] LABS: Hematocrit 39.7 % (37.0-47.0); Hemoglobin 13.8 g/dl (12.0-16.0); Imm Gran Abs Auto 0.02 X10*3/uL (0.00-0.03); Imm Gran Pct Auto 0.2 % (0.0-0.4); Lymphocytes Absolute Auto 2.8 X10*3/uL (1.2-4.9); Mean Corpuscular HGB Conc 34.8 g/dl (31.0-35.0); Mean Corpuscular Hemoglobin 31.9 pg (27.0-33.0); Mean Corpuscular Volume 91.9 fL (80.0-98.0); NRBC Abs Auto 0.000 X10*3/uL (0.0-0.012); NRBC Pct Auto 0.0 /100WBC (0.0-0.2); Platelet Count 337 X10*3/uL (160-400); Red Blood Count 4.32 X10*6/uL (4.20-5.50); White Blood Count 8.3 X10*3/uL (4.8-10.8)
[2025-05-14 21:32] VITALS: BP 100/41; PULSE 71; RESP 16; TEMP 36.7; O2SAT 98
[2025-05-14 21:38] LABS: Alanine Aminotransferase 15 U/L (0-31); Albumin Level 4.4 g/dL (3.5-5.0); Alkaline Phosphatase 86 U/L (39-117); Anion Gap 13 (12-20); Aspartate Amino Transferase 13 U/L (5-31); Blood Urea Nitrogen 13 mg/dL (9-16); Calcium 9.2 mg/dL (8.4-10.2); Carbon Dioxide 27 mmol/L (22-29); Chloride 107 mmol/L (96-108); Creatinine Clr Calc Pharmacy 93.3; Estimated Glomerular Filt Rate > 60; Lipase 23 U/L (8-78); Potassium 3.8 mmol/L (3.3-5.1); Sodium 143 mmol/L (135-145); Total Protein 7.4 g/dL (6.5-8.0)
[2025-05-14 21:55] LABS: Appearance Urine Clear; Glucose Urine UA Negative (Negative); PH 5.5 (5.0-9.0); Specific Gravity - Urine >= 1.030 (1.005-1.025); UMIC TRIGGER UACC YES
[2025-05-14 21:57] LABS: UPreg QC Valid YES
[2025-05-14 22:00] LABS: UACC Culture Trigger YES
[2025-05-14 22:39] VITALS: BP 122/43; PULSE 70; RESP 14; TEMP 36.7; O2SAT 97
--- NOTE | 2025-05-15 01:39 | ED.ABDPAIN ---
HPI - Abdominal Pain General Chief Complaint: Abdominal Pain Stated Complaint: ovarian cyst or kidney stone Time Seen by Provider: 05/15/25 00:43 Source: patient Mode of arrival: ambulatory Limitations: no limitations History of Present Illness ED Provider: Stef EAGLE HPI narrative: The patient is a 39-year-old female with a history of kidney stones, and remote history of cholecystectomy and 2 C-sections, who presents to the Emergency Department for evaluation of intermittent right lower quadrant abdominal pain that began a few weeks ago, improved for a period of time after taking anti-inflammatories and oxycodone, however returned yesterday and became severe tonight, bringing her to tears and prompting ED visit. The patient describes pain as cramping/spasming pain, which occasionally radiates to the back and creates a ?pulling? sensation in the lower abdomen. The patient reports tonight she felt a ?pop? at approximately 20:00 today, followed by worsening pain and prompting ED evaluation. Patient reports associated intermittent watery nonbloody diarrhea over the past few days, denies associated fever, vomiting, constipation, dysuria, hematuria, irregular vaginal bleeding or vaginal discharge. The patient reports she has an IUD in place and does not get regular menses. The patient did not attempted any medications for symptoms today but instead presented to the ED due to the popping sensation and severity of symptoms. The patient does report pain has somewhat improved compared to while she was in the waiting room. 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) cholecalciferol (vitamin D3) 1,250 1,250 mcg PO QWEEK 3 months #13 03/23/25 mcg (50,000 unit) capsule caps dextroamphetamine-amphetamine 20 20 mg PO DAILY 90 days #90 tabs 03/23/25 mg tablet dextroamphetamine-amphetamine ER 1 cap PO DAILY #90 caps 03/23/25 30 mg 24hr capsule,extend release dicyclomine 20 mg tablet 20 mg PO TID PRN abdominal pain 90 03/23/25 days #270 tabs ezetimibe 10 mg tablet 10 mg PO DAILY #90 tabs 03/23/25 famotidine 40 mg tablet 40 mg PO DAILY #90 tabs 03/23/25 hydrocortisone 2.5 % topical cream 1 appl MA BID PRN hemorrhoids #30 03/23/25 with perineal applicator grams meloxicam 15 mg tablet 15 mg PO DAILY #90 tabs 03/23/25 metformin 500 mg tablet 500 mg PO BID 90 days #180 tabs 03/23/25 ondansetron 4 mg disintegrating 4 mg PO TID PRN nausea and 03/23/25 tablet vomiting #270 tabs pantoprazole 40 mg tablet,delayed 40 mg PO BID 90 days #180 tabs 03/23/25 release terconazole 80 mg vaginal 80 mg vaginal BEDTIME 3 days #3 ea 03/23/25 suppository tizanidine 4 mg tablet 4 mg PO Q8H PRN muscle spasticity 03/23/25 #90 tabs cyanocobalamin (vitamin B-12) 1,000 mcg PO DAILY #90 caps 03/27/25 1,000 mcg capsule fluconazole 150 mg tablet 150 mg PO Q3D 2 doses #2 tabs 03/28/25 miconazole nitrate 2 % vaginal 1 appful vaginal BEDTIME 7 days 03/28/25 cream (Miconazole-7) #45 grams diabetic shoes and inserts #1 ea 04/23/25 methylprednisolone 4 mg tablets in See Rx Instructions PO PER PKG DIR 04/23/25 a dose pack (Medrol (Vaughn)) #21 ea magnesium oxide 400 mg PO BEDTIME #30 tabs 05/02/25 zolmitriptan 5 mg tablet 5 mg PO DAILY PRN migraine #90 tabs 05/02/25 blood sugar diagnostic (Contour #100 ea 05/07/25 Next Test Strips) blood-glucose meter (Contour Next #1 ea 05/07/25 Meter) blood-glucose sensor (WaveCheck G7 #9 ea 05/07/25 Sensor device) dulaglutide 0.75 mg/0.5 mL 0.75 mg (0.5 mL) subcut QWEEK #2 mL 05/07/25 subcutaneous pen injector ([facility]) lancets (Microlet Lancet) #100 ea 05/07/25 onabotulinumtoxinA 200 unit See Rx Instructions .Route 05/09/25 solution for injection (Botox) .COMPLEX #1 ea Allergies Allergy/AdvReac Type Severity Reaction Status Date / Time carbamazepine (From Tegretol) Allergy Mild Rash Verified 05/14/25 21:05 lamotrigine (From Lamictal) Allergy Mild Rash Verified 05/14/25 21:05 Latex, Natural Rubber Allergy Mild Rash Verified 05/14/25 21:05 lithium Allergy Mild hypothyroid Verified 05/14/25 21:05 ism pneumonia vaccine Allergy Mild cellulitis Uncoded 05/14/25 21:05 bitrex AdvReac Intermediate throat Uncoded 05/14/25 21:05 swelling Review of Systems Review of Systems Yes all other systems are reviewed and are negative [facility] Past Medical History Medical History (Updated 05/15/25 @ 09:09 by Natalie Santana MD) Cervicalgia Chronic migraine without aura Leg length discrepancy Posterior tibial tendon dysfunction, right Calcaneal spur Plantar fasciitis Class 2 obesity with body mass index (BMI) of 37.0 to 37.9 in adult delivery delivered Vitamin B12 deficiency Enlarged thyroid Left breast lump Deviated septum Type 2 diabetes mellitus with hemoglobin A1c goal of less than 7.0% Pure hypercholesterolemia, unspecified Hypophosphatemia Hyperlipidemia Bilateral foot pain Gastroparesis Arnold-Chiari malformation, type I ADHD Cervical cancer screening Annual physical exam Encounter for assessment of STD exposure Vaginitis and vulvovaginitis Surgical History History of cholecystectomy (~2023) History of colonoscopy (~2023) Family History Family History Father No problems noted. Mother COPD (chronic obstructive pulmonary disease) Heart problem Social History Social History Housing: House Alcohol intake: never Patient Tobacco Use Status: Never used Tobacco Smoked in Last 30 Days: No Advance Directives: No Advance Directives Information Provided: No Do you have a plan to hurt others: No Plan Patient : No service: No Current occupational status: employed Current occupation: [employer] employee Cognitive needs: No Hearing needs: No Vision needs: No Physical Exam ED Vital Signs: Vital Signs - 24 hr 05/14/25 21:03 05/14/25 21:32 05/14/25 22:39 Temperature 98 F 98.1 F 98.1 F Pulse Rate 87 71 70 Respiratory Rate 18 16 14 Blood Pressure 149/72 H 100/41 L 122/43 L Pulse Oximetry 98 98 97 Oxygen Delivery Method Room Air Room Air Room Air 05/15/25 07:54 Temperature 98.1 F Pulse Rate 77 Respiratory Rate 18 Blood Pressure 107/52 L Pulse Oximetry 98 Oxygen Delivery Method Room Air BMI result Body Mass Index 38.1 CONSTITUTIONAL: The patient appears non-toxic, well nourished and in no acute distress. Vital signs as documented. HEAD: Atraumatic, normocephalic. EYES: EOMs grossly intact, pupils equal, conjunctiva clear, no exudate. ENT: Nares patent, no discharge. Airway patent, no audible stridor, visible mucosa is pink and moist without noted lesions. NECK: Trachea is midline, no obvious masses or gross abnormalities. CHEST: Symmetric movement, normal appearance. LUNGS: LS present and CTAB, no w/r/r. Non-labored work of breathing. CARDIAC: Regular Rhythm, S1/S2 appreciated, no murmurs, rubs or gallops. ABDOMEN: Abdomen soft x4 quadrants, positive tenderness to palpation of the right lower quadrant, equivocal rebound, negative McBurney's point tenderness. No palpable masses or organomegaly. : Deferred. EXTREMITIES: Normal tone, moves all extremities spontaneously without reported pain. No obvious acute injury or deformity noted. NEURO: Alert and oriented x3, CN II-XII appear grossly intact. Cerebellar Functioning grossly intact. No obvious sensory or motor deficits. Speech clear and appropriate. PSYCH: normal affect, appropriate eye contact, fluid speech, with appropriate response to questioning. No reported suicidality or homicidality. SKIN: Warm, dry, color appropriate, normal turgor. No rashes noted. Course Reevaluation(s) Reevaluation #1: 39-year-old female came in for evaluation of right lower quadrant abdominal pain since yesterday, +blood in the urine, CT abdomen and pelvis did not visualize the appendix but no sign of acute appendicitis, no kidney stones or obstructive uropathy, patient is still in pain despite was given morphine x2 and Toradol, case discussed with Dr. Rambissoon on-call for surgery who will admit the patient for antibiotic and observation since early acute appendicitis can not be ruled out in this sitting. Time: 09:07 Medical Decision Making Medical Decision Making [facility] Narrative: 1:39 AM 05/15/2025 (Swapnil EAGLE): The patient is a 39-year-old female with a history of kidney stones, and remote history of cholecystectomy and 2 C-sections, who presents to the Emergency Department for evaluation of intermittent right lower quadrant abdominal pain that began a few weeks ago, improved for a period of time after taking anti-inflammatories and oxycodone, however returned yesterday and became severe tonight, bringing her to tears and prompting ED visit. The patient describes pain as cramping/spasming pain, which occasionally radiates to the back and creates a ?pulling? sensation in the lower abdomen. The patient reports tonight she felt a ?pop? at approximately 20:00 today, followed by worsening pain and prompting ED evaluation. Patient reports associated intermittent watery nonbloody diarrhea over the past few days, denies associated fever, vomiting, constipation, dysuria, hematuria, irregular vaginal bleeding or vaginal discharge. The patient reports she has an IUD in place and does not get regular menses. The patient did not attempted any medications for symptoms today but instead presented to the ED due to the popping sensation and severity of symptoms. The patient does report pain has somewhat improved compared to while she was in the waiting room. On exam the patient appears uncomfortable but in no acute distress. Abdominal exam reveals right lower quadrant tenderness with equivocal rebound without McBurney's point tenderness, negative CVAT bilaterally. The patient's laboratory evaluation shows no leukocytosis, anemia, electrolyte abnormality, or ROSIE. The patient's LFTs are unremarkable, lipase is normal. The patient's urinalysis shows increased specific gravity with proteinuria, large blood, and 6-10 WBCs. There is trace bacteria however there are 11-20 squamous epithelial cells and patient denies any urinary symptoms. The patient will be treated with IV fluids, Toradol, and sent for CT abdomen and pelvis to evaluate for kidney stone causing hematuria versus other acute intra-abdominal pathology. If CT is unremarkable, patient may be suffering from ovarian pathology and we will consider ultrasound to rule out torsion. Admission/Observation Consideration of admission/observation: Escalation of care including admission/observation considered Lab Data [facility] Lab Attestation statement: I reviewed the patient's lab results. 05/14/25 21:18 05/14/25 21:18 Labs: Lab Results 05/14/25 Range/Units 21:18 WBC 8.3 (4.8-10.8) X10*3/uL RBC 4.32 (4.20-5.50) X10*6/uL Hgb 13.8 (12.0-16.0) g/dl Hct 39.7 (37.0-47.0) % MCV 91.9 (80.0-98.0) fL MCH 31.9 (27.0-33.0) pg MCHC 34.8 (31.0-35.0) g/dl RDW 12.5 (11.0-16.0) % Plt Count 337 (160-400) X10*3/uL MPV 9.1 L (9.4-12.3) fL Immature Gran % (Auto) 0.2 (0.0-0.4) % Neut % (Auto) 58.5 (45-73) % Lymph % (Auto) 33.1 (20-40) % [place] % (Auto) 6.8 (2-11) % Eos % (Auto) 1.2 (0-4) % Baso % (Auto) 0.2 (0-2) % Lymph # (Auto) 2.8 (1.2-4.9) X10*3/uL [place] # (Auto) 0.6 (0.1-1.2) X10*3/uL Eos # (Auto) 0.1 (0.0-0.4) X10*3/uL Baso # (Auto) 0.0 (0.0-0.2) X10*3/uL Abs Immat Gran (auto) 0.02 (0.00-0.03) X10*3/uL Absolute Neuts (auto) 4.9 (2.0-8.3) x10*3/uL Absolute Nucleated RBC 0.000 (0.0-0.012) X10*3/uL Nucleated RBC % (auto) 0.0 (0.0-0.2) /100WBC Sodium 143 (135-145) mmol/L Potassium 3.8 (3.3-5.1) mmol/L Chloride 107 (96-108) mmol/L Carbon Dioxide 27 (22-29) mmol/L Anion Gap 13 (12-20) BUN 13 (9-16) mg/dL Creatinine 0.90 (0.5-1.4) mg/dL Estim Creat Clear Calc 93.3 Estimated GFR > 60 Random Glucose 135 H (60-115) mg/dL Calcium 9.2 (8.4-10.2) mg/dL Total Bilirubin 0.9 (0.0-1.0) mg/dL Direct Bilirubin 0.1 (0.0-0.5) mg/dL AST 13 (5-31) U/L ALT 15 (0-31) U/L Alkaline Phosphatase 86 (39-117) U/L Total Protein 7.4 (6.5-8.0) g/dL Albumin 4.4 (3.5-5.0) g/dL Lipase 23 (8-78) U/L Urine Color Dark Yellow Urine Appearance Clear Urine pH 5.5 (5.0-9.0) Ur Specific [place] >= 1.030 H (1.005-1.025) Urine Protein 30 (1+) H (Neg-Trace) mg/dL Urine Glucose (UA) Negative (Negative) mg/dL Urine Ketones Trace (Negative) mg/dL Urine Blood Large (3+) H (Negative) Urine Nitrite Negative (Negative) Ur Leukocyte Esterase Negative (Negative) Urine RBC >20 H (0-2) /HPF Urine WBC 6-10 H (0-5) /HPF Ur Squamous Epith Cells 11-20 (0-2) /HPF Urine Bacteria Trace (None Seen) Hyaline Casts 3-5 (0-2) /LPF Urine Test NEGATIVE (NEGATIVE) Radiology Impression Discussion of test interpretation with radiology: I have reviewed the radiologist's reading. Radiologist Impression: CT abdomen and pelvis with contrast Comparison: None provided Findings: The lung bases are clear. Cholecystectomy. Solid organs are unremarkable. No urolithiasis. No bowel obstruction, pneumoperitoneum, or pneumatosis. Appendix not definitely visualized and no secondary signs of acute appendicitis. Intrauterine device in place. Left adnexal cyst measures 3 cm. Right adnexal cyst measures 4.1 cm. Urinary bladder is underdistended limiting evaluation. The bones are intact. IMPRESSION: Bilateral adnexal cysts, the larger of which is on the right, measuring 4.1 cm. If this correlates to patient's symptoms, consider pelvic ultrasound for further characterization. Appendix not visualized. Correlate with surgical history. This document has been electronically signed by: Yoni Sorto MD on 05/15/2025 03:57:43 External Record Review External record reviewed: Outpatient record, Prior outpatient labs and Prior outpatient radiology Prescription Management I considered prescription management with: Pain Medication Medications Administered Discontinued Medications Generic Name Dose Route Start Last Admin Trade Name Freq PRN Reason Stop Dose Admin Sodium Chloride 1,000 mls @ 999 mls/hr 05/15/25 01:15 05/15/25 02:50 Ns IV 05/15/25 02:15 Infused .Q1H1M GERTRUDE Infusion Iohexol 100 ml 05/15/25 01:54 05/15/25 01:54 Iohexol 350 Mg/Ml 100 Ml Infus..Btl IV 05/15/25 01:55 85 ml ONCE ONE Administration Ketorolac Tromethamine 15 mg 05/15/25 01:07 05/15/25 01:38 Ketorolac Tromethamine 15 Mg/Ml Vial IVPUSH 05/15/25 01:08 15 mg ONCE ONE Administration Morphine Sulfate 4 mg 05/15/25 02:05 05/15/25 02:08 Morphine Sulfate 4 Mg/Ml Cartridge IVPUSH 05/15/25 02:06 4 mg ONCE ONE Administration Protocol Morphine Sulfate 4 mg 05/15/25 05:58 05/15/25 06:04 Morphine Sulfate 4 Mg/Ml Cartridge IVPUSH 05/15/25 05:59 4 mg ONCE ONE Administration Protocol Discharge Plan Discharge Clinical Impression: Hematuria, Right lower quadrant abdominal pain Patient Disposition: Admitted As Inpatient Print Language: Eritrean
[2025-05-15] MEDS: iohexoL 350 MG/ML 100 ML INFUS..BTL IV (01:54)
--- NOTE | 2025-05-15 06:08 | PC.NURSE ---
pt crying reporting spasming pain in abdomen. Stef AEGLE made aware and order for morphine placed. Pt medicated per MAR
[2025-05-15 07:54] VITALS: BP 107/52; PULSE 77; RESP 18; TEMP 36.7; O2SAT 98
[2025-05-15 09:18] LABS: Glucose, Whole Blood 85 mg/dL (60-115)
--- NOTE | 2025-05-15 10:25 | PC.NURSE ---
patient requesting PRN morphine d/t increased right lower abd pain despite PRN morphine parameters in the JUL. pt medicated per provider order. effectiveness pending.
--- NOTE | 2025-05-15 10:42 | MHC.EDTECH ---
Patient has $680 and refused to put her money in the safe with the security, MARISSA Edmond and chemistry intern Becky Aware.
--- NOTE | 2025-05-15 11:04 | PHA.MEDREC ---
Pharmacy Consult ? Medication Reconciliation Pharmacy has completed the medication reconciliation. Spoke with pt and she confirmed her medications. Pt confirmed she should be taking Atorvastatin 80mg tabs once at bedtime but states she has not been compliant taking that med in ~3 weeks, she has not been compliant with taking Vitamin D2 once a week and states she has not taken that in ~3-4 weeks, she takes Adderall 30mg once in the morning and states she has extra Adderall 20mg tabs she is taking once daily@1400 from when she moved here from [place] 1+yr ago, she was suppose to be starting Trulicity once a week and Botox but states her insurance is requiring a PA from her Dr to get filled and pt has been paying for her Pantoprazole 40mg out of pocket since her insurance wont cover 1 tab BID.
[2025-05-15 11:07] VITALS: BP 108/57; PULSE 65; RESP 16; TEMP 36.9; O2SAT 97
--- NOTE | 2025-05-15 11:17 | PHA.MEDREC ---
Addendum entered by Anthony Johnson PharmD 05/15/25 13:13: [facility] REVIEWED. Patient uses a half tab of the atenolol as needed. Addendum entered by Vimal Terrazas 05/15/25 12:41: Spoke with pt about Atenolol and she confirmed she has Atenolol 25mg tabs at home she uses as needed for heart palpitations; pt forgot about in original interaction since she has never had to use them. Original Note: Pharmacy Consult ? Medication Reconciliation Pharmacy has completed the medication reconciliation. Spoke with pt and she confirmed her medications. Pt confirmed she should be taking Atorvastatin 80mg tabs once at bedtime but states she has not been compliant taking that med in ~3 weeks, she has not been compliant with taking Vitamin D2 once a week and states she has not taken that in ~3-4 weeks, she takes Adderall 30mg once in the morning and states she has extra Adderall 20mg tabs she is taking once daily@1400 from when she moved here from [place] 1+yr ago, she was suppose to be starting Trulicity once a week and Botox but states her insurance is requiring a PA from her Dr to get filled, pt has been paying for her Pantoprazole 40mg out of pocket since her insurance wont cover 1 tab BID and pt uses Meloxicam 15mg as needed for inflammation.
[2025-05-15 12:10] VITALS: BMI 40.2
--- NOTE | 2025-05-15 13:54 | PM.HPGS ---
History of Present Illness History of Present Illness Date of Service: 05/15/25 Chief complaint: abdominal pain Narrative: Zuleyka Bowers is a 39 year old female who presented to the emergency room last night complaining of right lower quadrant abdominal pain. She denied any fevers or chills any nausea or vomiting. She has been having pain in the right lower quadrant area for the last 2 weeks on and off. She says this time it was getting worse and more intense. She describes the pain as more of a cramping pulling sensation and she was very tender in this area and so she was concerned for potential appendicitis and came into the ER. Here workup was carried out where her labs were all within normal limits white count normal. She did have a UA which showed significant red blood cell count which is unusual for her. She does have an IUD and does not get periods. She denies seeing any blood in her urine. She has had issues with yeast infections in the recent past was treated with several rounds of fluconazole before this was alleviated. She has seen [facility] for this here. Patient has had her gallbladder out in the past. CT scan of the abdomen and pelvis was carried out which did not reveal any significant inflammatory changes but the appendix was not visualized. No fecaliths were noted. She does have a history of kidney stones although she thinks her kidney stones around the left side in the past. She says this feels similar but still different from her previous episodes of pain from her kidney stones. CT scan on review with Radiology does not show any evidence of any stones or hydronephrosis either on the left or right side. Patient does have a significant right ovarian cyst and a smaller left ovarian cyst. She says she has known that she has had ovarian cysts in the past but this 1 is now measuring 4 cm plus when she says her previous cysts were in the 3 cm range. There measuring out to be simple cysts and nothing more concerning. She does not have a significant amount of free fluid in the pelvis. She denies any trauma to the area she denies any unusual diet. No sick contacts. Review of Systems Review of Systems: Yes all other systems are reviewed and are negative [facility] Past Medical History Medical History (Updated 05/15/25 @ 09:09 by Natalie Santana MD) Cervicalgia Chronic migraine without aura Leg length discrepancy Posterior tibial tendon dysfunction, right Calcaneal spur Plantar fasciitis Class 2 obesity with body mass index (BMI) of 37.0 to 37.9 in adult delivery delivered Vitamin B12 deficiency Enlarged thyroid Left breast lump Deviated septum Type 2 diabetes mellitus with hemoglobin A1c goal of less than 7.0% Pure hypercholesterolemia, unspecified Hypophosphatemia Hyperlipidemia Bilateral foot pain Gastroparesis Arnold-Chiari malformation, type I ADHD Cervical cancer screening Annual physical exam Encounter for assessment of STD exposure Vaginitis and vulvovaginitis Family History Family History Father No problems noted. Mother COPD (chronic obstructive pulmonary disease) Heart problem Surgical History Surgical History History of cholecystectomy (~2023) History of colonoscopy (~2023) Social History Social History Housing: House Alcohol intake: never Patient Tobacco Use Status: Never used Tobacco Smoked in Last 30 Days: No Advance Directives: No Advance Directives Information Provided: No Do you have a plan to hurt others: No Plan Patient : No service: No Current occupational status: employed Current occupation: [employer] employee Cognitive needs: No Hearing needs: No Vision needs: No Meds Allergies Allergy/AdvReac Type Severity Reaction Status Date / Time carbamazepine (From Tegretol) Allergy Mild Rash Verified 05/14/25 21:05 lamotrigine (From Lamictal) Allergy Mild Rash Verified 05/14/25 21:05 Latex, Natural Rubber Allergy Mild Rash Verified 05/14/25 21:05 lithium Allergy Mild hypothyroid Verified 05/14/25 21:05 ism pneumonia vaccine Allergy Mild cellulitis Uncoded 05/14/25 21:05 bitrex AdvReac Intermediate throat Uncoded 05/14/25 21:05 swelling Active Medications: Current Medications Acetaminophen (Acetaminophen 325 Mg Tablet) 650 mg PO Q6H PRN PRN Reason: Pain, Mild 1-3,fever,headache Sodium Chloride (Ns) 1,000 mls @ 100 mls/hr IVCONT .Q10H GERRTUDE Last Admin: 05/15/25 10:25 Dose: 100 mls/hr Piperacillin Sod/Tazobactam (Sod 3.375 gm/ Sodium Chloride) 50 mls @ 100 mls/hr IV Q6H [facility] Last Infusion: 05/15/25 12:25 Dose: Infused Ketorolac Tromethamine (Ketorolac Tromethamine 15 Mg/Ml Vial) 15 mg IVPUSH Q6H [facility] Last Admin: 05/15/25 11:44 Dose: 15 mg Melatonin (Melatonin 3 Mg Tablet) 6 mg PO BEDTIME PRN PRN Reason: Insomnia Morphine Sulfate (Morphine Sulfate 4 Mg/Ml Cartridge) 2 mg IVPUSH Q4H PRN; Protocol PRN Reason: Pain, Moderate(Pain Scale 4-6) Last Admin: 05/15/25 10:25 Dose: 2 mg Ondansetron HCl (Ondansetron Hcl 4 Mg/2 Ml Vial) 4 mg IVPUSH Q8H PRN PRN Reason: Nausea and Vomiting Last Admin: 05/15/25 11:44 Dose: 4 mg Sodium Chloride (0.9 % Sodium Chloride Flush 3 Ml Syringe) [facility] Medications ?Medication ?Instructions ?Recorded ?Confirmed ?Last Taken ?Type atenolol 25 mg tablet 12.5 mg PO DAILY PRN Heart 05/15/25 05/15/25 Unknown History Palpitations cholecalciferol (vitamin D3) 1,250 1,250 mcg PO ELLIS 05/15/25 05/15/25 3 Weeks Ago History mcg (50,000 unit) capsule ~04/24/25 dextroamphetamine-amphetamine 20 20 mg PO DAILY@1400 05/15/25 05/15/25 05/13/25 History mg tablet meloxicam 15 mg tablet 15 mg PO DAILY PRN Inflammation 05/15/25 05/15/25 Unknown History miconazole nitrate 2 % vaginal 1 appful vaginal BEDTIME PRN Yeast 05/15/25 05/15/25 Unknown History cream (Miconazole-7) Infection pantoprazole 40 mg tablet,delayed 40 mg PO BID@0630,1630 05/15/25 05/15/25 05/13/25 History release Physical Exam Vital Signs: Vital Signs: Last Vital Signs Temp 98.5 F 05/15/25 11:07 Pulse 65 05/15/25 11:07 Resp 16 05/15/25 11:07 BP 108/57 L 05/15/25 11:07 Pulse Ox 97 05/15/25 11:07 O2 Del Method Room Air 05/15/25 11:07 BMI result Body Mass Index 40.2 Const: General: cooperative, healthy appearing, comfortable and no acute distress Resp: Effort & Inspection: normal respiratory effort and able to speak in complete sentences Auscultation: clear to auscultation bilaterally Cardio: Rate: regular rate GI: Other: Abdomen is soft nondistended obese. Tender in the right lower quadrant no rebound some guarding no peritoneal signs active bowel sounds no masses Skin: Other: Nonicteric Results Results Labs: Short CBC 05/14/25 Range/Units 21:18 WBC 8.3 (4.8-10.8) X10*3/uL Hgb 13.8 (12.0-16.0) g/dl Hct 39.7 (37.0-47.0) % Plt Count 337 (160-400) X10*3/uL BMP 05/14/25 21:18 Sodium 143 Potassium 3.8 Chloride 107 Carbon Dioxide 27 BUN 13 Creatinine 0.90 Calcium 9.2 Liver Function 05/14/25 Range/Units 21:18 Total Bilirubin 0.9 (0.0-1.0) mg/dL Direct Bilirubin 0.1 (0.0-0.5) mg/dL AST 13 (5-31) U/L ALT 15 (0-31) U/L Alkaline Phosphatase 86 (39-117) U/L Albumin 4.4 (3.5-5.0) g/dL Urine 05/14/25 Range/Units 21:18 Urine Color Dark Yellow Urine Appearance Clear Urine pH 5.5 (5.0-9.0) Ur Specific [place] >= 1.030 H (1.005-1.025) Urine Protein 30 (1+) H (Neg-Trace) mg/dL Urine Glucose (UA) Negative (Negative) mg/dL Urine Test NEGATIVE (NEGATIVE) Abdomen CT scan report/results: report reviewed and image reviewed CT scan - pelvis: report reviewed and image reviewed Additional studies: Patient: Zuleyka Bowers MR#: [id number] : 1985 Acct:[id number] Age/Sex: 39 / F ADM Date: 05/14/25 Loc: HO.ED Attending Dr: Ordering Physician: Stef Ya PA-C Date of Service: 05/15/25 Procedure(s): CT abdomen pelvis w IV con Accession Number(s): [id number] cc: Stef Ya PA-C; Meche Hoffman PA-C~ Report Number: [id number]: Total DLP = 0.00 mGy-cm Reason for Exam: RLQ abd Pain; Tender CLINICAL HISTORY: RLQ abd Pain; Tender CT abdomen and pelvis with contrast Comparison: None provided Findings: The lung bases are clear. Cholecystectomy. Solid organs are unremarkable. No urolithiasis. No bowel obstruction, pneumoperitoneum, or pneumatosis. Appendix not definitely visualized and no secondary signs of acute appendicitis. Intrauterine device in place. Left adnexal cyst measures 3 cm. Right adnexal cyst measures 4.1 cm. Urinary bladder is underdistended limiting evaluation. The bones are intact. IMPRESSION: Bilateral adnexal cysts, the larger of which is on the right, measuring 4.1 cm. If this correlates to patient's symptoms, consider pelvic ultrasound for further characterization. Appendix not visualized. Correlate with surgical history. 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 no fevers or chills patient with known history of kidney stones and she does have hematuria but no visible stone by CT scan or hydroureter, story and exam not necessarily consistent with acute appendicitis despite not being able to visualize the appendix on imaging and noted to also have a significant right-sided ovarian cyst. I think her issues are arising more from the ovarian cyst but also the large amount of hematuria we are just in January she had no significant hematuria. She does have an IUD in place and does not get. So unsure why this finding is positive. At this point I do not think she needs any surgical intervention but we will admit advance her diet to clear liquids and see how she does. Check labs in the morning. We will just do some IV Toradol and little morphine as needed. 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 In the meantime we will also treat empirically for early appendicitis with IV Zosyn. She understands and agrees with the above plan. If anything worsens then we will reassess the need for surgical intervention. Quality Stroke Does the patient have a stroke diagnosis?: No VTE Prior VTE?: No VTE Risk Level:: Surgical - low VTE Device Contraindication: Treatment Not Indicated VTE Drug Contraindication: Treatment Not Indicated Procedures Date of Service Date of Service: 05/15/25
--- NOTE | 2025-05-15 14:41 | PM.GYNCN ---
MESSENGER OFFICE - CN: HPI Data of Consult Consult date: 05/15/25 Requesting Physician: Elza Kasper MD Primary Care Provider: Meche Hoffman PA-C Consult Narrative Narrative: I was consulted on Zuleyka Bowers who is a 39 year old female presented to emergency room with right lower quadrant pain that started yesterday 18:00, the pain is associated with right flank pain and nausea, no vomiting no fever or chills, no vaginal discharge or any other associated symptoms. History of kidney stones and history of severe candidal vulvovaginitis after antibiotic treatment. The patient was started of antibiotic prophylaxis for possible appendicitis. Urology consulted, the patient is admitted under general surgery service The following workup was done in the emergency room: CBC with a normal no evidence of leukocytosis 8.3 WBC is, H&H= 39.7/13.8 UPT negative Urinalysis shows large blood CT scan showed the following: IMPRESSION: Bilateral adnexal cysts, the larger of which is on the right, measuring 4.1 cm. If this correlates to patient's symptoms, consider pelvic ultrasound for further characterization. Appendix not visualized. Correlate with surgical history. Pelvic ultrasound showed the following: Transabdominal scanning performed for overall anatomy. Transvaginal scanning performed for additional detail. Anteverted, anteflexed uterus is 9.1 cm length. Normal myometrium. Intrauterine device is partially seen. Right ovary 5.4 x 4.3 x 4.8 cm and contains a 4.3 x 3.3 x 3.8 cm simple cyst. Left ovary 3.5 x 2.3 x 1.6 cm and contain a 2.5 x 1.7 x 2.3 cm simple cyst. There is an internal calcification within the left ovary measuring 0.4 x 0.4 x 0.4 cm. Normal color Doppler with arterial/venous spectral tracing of both ovaries. No free fluid. cc:: CC: Elza Kasper MD OB [facility] Past Medical History Medical History (Updated 05/15/25 @ 15:09 by Mat Disla MD) Cervicalgia Chronic migraine without aura Leg length discrepancy Posterior tibial tendon dysfunction, right Calcaneal spur Plantar fasciitis Class 2 obesity with body mass index (BMI) of 37.0 to 37.9 in adult delivery delivered Vitamin B12 deficiency Enlarged thyroid Left breast lump Deviated septum Type 2 diabetes mellitus with hemoglobin A1c goal of less than 7.0% Pure hypercholesterolemia, unspecified Hypophosphatemia Hyperlipidemia Bilateral foot pain Gastroparesis Arnold-Chiari malformation, type I ADHD Cervical cancer screening Annual physical exam Encounter for assessment of STD exposure Vaginitis and vulvovaginitis Family History Family History Father No problems noted. Mother COPD (chronic obstructive pulmonary disease) Heart problem Surgical History Surgical History History of cholecystectomy (~2023) History of colonoscopy (~2023) Social History Social History Housing: House Alcohol intake: never Patient Tobacco Use Status: Never used Tobacco Smoked in Last 30 Days: No Advance Directives: No Advance Directives Information Provided: No Do you have a plan to hurt others: No Plan Patient : No service: No Current occupational status: employed Current occupation: [employer] employee Cognitive needs: No Hearing needs: No Vision needs: No Meds Allergies Allergy/AdvReac Type Severity Reaction Status Date / Time carbamazepine (From Tegretol) Allergy Mild Rash Verified 05/14/25 21:05 lamotrigine (From Lamictal) Allergy Mild Rash Verified 05/14/25 21:05 Latex, Natural Rubber Allergy Mild Rash Verified 05/14/25 21:05 lithium Allergy Mild hypothyroid Verified 05/14/25 21:05 ism pneumonia vaccine Allergy Mild cellulitis Uncoded 05/14/25 21:05 bitrex AdvReac Intermediate throat Uncoded 05/14/25 21:05 swelling Active Medications: Current Medications Acetaminophen (Acetaminophen 325 Mg Tablet) 650 mg PO Q6H PRN PRN Reason: Pain, Mild 1-3,fever,headache Albuterol Sulfate (Albuterol Sulfate 90 Mcg 8 Gm Inhaler) 2 puff INHALE Q6H PRN PRN Reason: shortness of breath or wheezing Amphetamine/Dextroamphetamine (Amphetamine Mixed Salts 20 Mg Tablet) 20 mg PO DAILY@1400 GERTRUDE Amphetamine/Dextroamphetamine (Dextroamphetamine/Amphetamine Xr 10 Mg Cap.Er.24h) 30 mg PO DAILY GERTRUDE Last Admin: 05/15/25 14:35 Dose: Not Given Atenolol (Atenolol 25 Mg Tablet) 12.5 mg PO DAILY PRN; Protocol PRN Reason: Heart Palpitations Atorvastatin Calcium (Atorvastatin Calcium 80 Mg Tablet) 80 mg PO BEDTIME GERTRUDE Dicyclomine HCl (Dicyclomine Hcl 10 Mg Capsule) 20 mg PO TID PRN PRN Reason: abdominal pain Ezetimibe (Ezetimibe 10 Mg Tablet) 10 mg PO DAILY GERTRUDE Famotidine (Famotidine 20 Mg Tablet) 40 mg PO DAILY [facility] Sodium Chloride (Ns) 1,000 mls @ 100 mls/hr IVCONT .Q10H [facility] Last Admin: 05/15/25 10:25 Dose: 100 mls/hr Piperacillin Sod/Tazobactam (Sod 3.375 gm/ Sodium Chloride) 50 mls @ 100 mls/hr IV Q6H [facility] Last Infusion: 05/15/25 12:25 Dose: Infused Ketorolac Tromethamine (Ketorolac Tromethamine 15 Mg/Ml Vial) 15 mg IVPUSH Q6H [facility] Last Admin: 05/15/25 11:44 Dose: 15 mg Magnesium Oxide (Magnesium Oxide 400 Mg Tablet) 400 mg PO BEDTIME [facility] Melatonin (Melatonin 3 Mg Tablet) 6 mg PO BEDTIME PRN PRN Reason: Insomnia Morphine Sulfate (Morphine Sulfate 4 Mg/Ml Cartridge) 2 mg IVPUSH Q4H PRN; Protocol PRN Reason: Pain, Moderate(Pain Scale 4-6) Last Admin: 05/15/25 10:25 Dose: 2 mg Non-Formulary Medication (Zolmitriptan) 5 mg PO DAILY PRN PRN Reason: migraine Ondansetron HCl (Ondansetron Hcl 4 Mg/2 Ml Vial) 4 mg IVPUSH Q8H PRN PRN Reason: Nausea and Vomiting Last Admin: 05/15/25 11:44 Dose: 4 mg Ondansetron HCl (Ondansetron Odt 4 Mg Tab.Rapdis) 4 mg TRANSLINGU TID PRN PRN Reason: Nausea and Vomiting Sodium Chloride (0.9 % Sodium Chloride Flush 3 Ml Syringe) 3 ml IVFLUSH QSHIFT [facility] Tizanidine HCl (Tizanidine Hcl 4 Mg Tablet) 4 mg PO Q8H PRN PRN Reason: muscle spasticity Home Medications ?Medication ?Instructions ?Recorded ?Confirmed ?Last Taken ?Type atenolol 25 mg tablet 12.5 mg PO DAILY PRN Heart 05/15/25 05/15/25 Unknown History Palpitations cholecalciferol (vitamin D3) 1,250 1,250 mcg PO ELLIS 05/15/25 05/15/25 3 Weeks Ago History mcg (50,000 unit) capsule ~04/24/25 dextroamphetamine-amphetamine 20 20 mg PO DAILY@1400 05/15/25 05/15/25 05/13/25 History mg tablet meloxicam 15 mg tablet 15 mg PO DAILY PRN Inflammation 05/15/25 05/15/25 Unknown History miconazole nitrate 2 % vaginal 1 appful vaginal BEDTIME PRN Yeast 05/15/25 05/15/25 Unknown History cream (Miconazole-7) Infection pantoprazole 40 mg tablet,delayed 40 mg PO BID@0630,1630 05/15/25 05/15/25 05/13/25 History release MESSENGER OFFICE Physical Exam Vitals Vital signs: Temp Pulse Resp BP Pulse Ox O2 Del Method 98.5 F 65 16 108/57 L 97 Room Air 05/15/25 11:07 05/15/25 11:07 05/15/25 11:07 05/15/25 11:07 05/15/25 11:07 05/15/25 11:07 BMI result Body Mass Index 40.2 Abdomen Auscultation/Inspection/Palpation: Normal bowel sounds, Soft, Non-distended and Tenderness (Mild lower quadrant tenderness no guarding or rebound) Female Genitalia (Pelvic) Bladder/Urethra: Normal meatus Vulva: No lesions Vagina: Nontender Cervix: No cervical motion tenderness Uterus: Nontender Adnexa/Parametria: Adnexal Mass: None, Parametrial Tenderness: None and Parametrial Mass: None MESSENGER OFFICE - Results Labs 05/14/25 21:18 05/14/25 21:18 Labs: Short CBC 05/14/25 Range/Units 21:18 WBC 8.3 (4.8-10.8) X10*3/uL Hgb 13.8 (12.0-16.0) g/dl Hct 39.7 (37.0-47.0) % Plt Count 337 (160-400) X10*3/uL BMP 05/14/25 21:18 Sodium 143 Potassium 3.8 Chloride 107 Carbon Dioxide 27 BUN 13 Creatinine 0.90 Calcium 9.2 Liver Function 05/14/25 Range/Units 21:18 Total Bilirubin 0.9 (0.0-1.0) mg/dL Direct Bilirubin 0.1 (0.0-0.5) mg/dL AST 13 (5-31) U/L ALT 15 (0-31) U/L Alkaline Phosphatase 86 (39-117) U/L Albumin 4.4 (3.5-5.0) g/dL Urine 05/14/25 Range/Units 21:18 Urine Color Dark Yellow Urine Appearance Clear Urine pH 5.5 (5.0-9.0) Ur Specific [place] >= 1.030 H (1.005-1.025) Urine Protein 30 (1+) H (Neg-Trace) mg/dL Urine Glucose (UA) Negative (Negative) mg/dL Urine Test NEGATIVE (NEGATIVE) Assessment and Plan (1) Right lower quadrant abdominal pain: Status: Acute Since the patient has significant colicky pain with right flank pain, microscopic hematuria and history of nephrolithiasis, kidney stone is high on the differential diagnosis as a cause of her pain Appendicitis is to be ruled out Although the patient has a 4.1 cm right simple ovarian cyst, since there is no evidence of ovarian torsion or rupture, and given the intensity and the colicky nature of the pain, the clinical presentation makes ovarian cyst as a cause of the pain unlikely. (2) Ovarian cyst: Status: Acute Discussed with the patient the finding on ultrasound bilateral simple ovarian cyst with 4.1 cm right simple ovarian cyst , unlikely as a cause of her pain unless presentation changes (3) History of vulvovaginitis: Status: Acute Given the history of severe candidal vulvovaginitis of the antibiotic treatment and since the patient is on antibiotics will start the patient on antifungal vaginally to prevent another episode of vulvovaginitis
[2025-05-15 15:09] VITALS: BP 107/53; PULSE 66; RESP 16; TEMP 36.9; O2SAT 96
[2025-05-15 17:06] LABS: Bacterial Vaginosis PCR NEGATIVE (Negative); Candida Group PCR NOT DETECTED (Not Detect); Candida glab krusei PCR NOT DETECTED (Not Detect); Trichomonas vaginalis PCR NOT DETECTED (Not Detect)
[2025-05-15 17:36] LABS: CT PCR NOT DETECTED (Not Detect.); NG PCR NOT DETECTED (Not Detect.)
[2025-05-15 19:38] VITALS: BP 98/45; PULSE 69; RESP 18; TEMP 36.6; O2SAT 97
[2025-05-15] MEDS: Clotrimazole 1 % Vaginal Cream 45 GM TUBE 1 APPL VAGINAL (20:44)
[2025-05-15 23:49] VITALS: BP 101/49; PULSE 61; RESP 17; TEMP 36.7; O2SAT 95
[2025-05-15] MEDS: 0.9 % Sodium Chloride Flush 3 ML SYRINGE IVFLUSH (23:54)
[2025-05-16 03:39] VITALS: BP 100/55; PULSE 72; RESP 17; TEMP 36; O2SAT 96
[2025-05-16 06:27] LABS: MANUAL DIFF FLAG NO
[2025-05-16 06:32] LABS: Hematocrit 34.0 % (37.0-47.0); Hemoglobin 11.5 g/dl (12.0-16.0); Imm Gran Abs Auto 0.01 X10*3/uL (0.00-0.03); Imm Gran Pct Auto 0.2 % (0.0-0.4); Lymphocytes Absolute Auto 1.6 X10*3/uL (1.2-4.9); Mean Corpuscular HGB Conc 33.8 g/dl (31.0-35.0); Mean Corpuscular Hemoglobin 31.7 pg (27.0-33.0); Mean Corpuscular Volume 93.7 fL (80.0-98.0); NRBC Abs Auto 0.000 X10*3/uL (0.0-0.012); NRBC Pct Auto 0.0 /100WBC (0.0-0.2); Platelet Count 227 X10*3/uL (160-400); Red Blood Count 3.63 X10*6/uL (4.20-5.50); White Blood Count 5.2 X10*3/uL (4.8-10.8)
[2025-05-16 07:14] VITALS: BP 103/53; PULSE 71; RESP 16; TEMP 36.7; O2SAT 97
[2025-05-16 07:21] LABS: Glucose, Whole Blood 83 mg/dL (60-115)
--- NOTE | 2025-05-16 07:45 | PM.PNGS ---
Subjective Subjective Date of Service: 05/16/25 <Satnam Ramos PA-C - Last Filed: 05/16/25 07:56> 05/16/25 <Kulwant Diaz MD - Last Filed: 05/16/25 16:55> Interval history: Was sleeping comfortably in bed. Denying significant pain. Dull pain in right lower quadrant. Overall feeling improved from yesterday. Did have some mild nausea yesterday evening. Denies nausea or vomiting currently. Denies fevers or chills. Denies gross hematuria <Satnam Ramos PA-C - Last Filed: 05/16/25 07:56> Physical Exam Vital Signs: Vital Signs: Last Vital Signs Temp 98.0 F 05/16/25 07:14 Pulse 71 05/16/25 07:14 Resp 16 05/16/25 07:14 BP 103/53 L 05/16/25 07:14 Pulse Ox 97 05/16/25 07:14 O2 Del Method Room Air 05/16/25 07:14 BMI result Body Mass Index 40.2 <Satnam Ramos PA-C - Last Filed: 05/16/25 07:56> Const: General: comfortable and no acute distress <Satnam Ramos PA-C - Last Filed: 05/16/25 07:56> Orientation/consciousness: patient oriented x3 <Satnam Ramos PA-C - Last Filed: 05/16/25 07:56> Resp: Effort & Inspection: normal respiratory effort and able to speak in complete sentences <Satnam Ramos PA-C - Last Filed: 05/16/25 07:56> GI: Inspection: No distended <Satnam Ramos PA-C - Last Filed: 05/16/25 07:56> Palpation (GI): Soft to palpation, Tenderness to palpation present (GI) (Mild) in the RLQ; with no rebound tenderness and Rovsing's sign negative and no guarding <LUISITO Becerra Last Filed: 05/16/25 07:56> Neuro: General: patient oriented x3 <LUISITO Becerra Last Filed: 05/16/25 07:56> Objective Data Active Medications Acetaminophen (Acetaminophen 325 Mg Tablet) 650 mg PO Q6H PRN PRN Reason: Pain, Mild 1-3,fever,headache Albuterol Sulfate (Albuterol Sulfate 90 Mcg 8 Gm Inhaler) 2 puff INHALE Q6H PRN PRN Reason: shortness of breath or wheezing Amphetamine/Dextroamphetamine (Amphetamine Mixed Salts 20 Mg Tablet) 20 mg PO DAILY@1400 [facility] Amphetamine/Dextroamphetamine (Dextroamphetamine/Amphetamine Xr 10 Mg Cap.Er.24h) 30 mg PO DAILY [facility] Last Admin: 05/15/25 14:35 Dose: Not Given Documented By: KADEN Non-Admin Reason: Pt. refused. Wants to resume in morning. Atenolol (Atenolol 25 Mg Tablet) 12.5 mg PO DAILY PRN; Protocol PRN Reason: Heart Palpitations Atorvastatin Calcium (Atorvastatin Calcium 80 Mg Tablet) 80 mg PO BEDTIME [facility] Last Admin: 05/15/25 20:44 Dose: 80 mg Documented By: KENIA Clotrimazole (Clotrimazole 1 % Vaginal Cream 45 Gm Tube) 1 appl VAGINAL BEDTIME [facility] Stop: 05/21/25 21:01 Last Admin: 05/15/25 20:44 Dose: 1 appl Documented By: KENIA Dicyclomine HCl (Dicyclomine Hcl 10 Mg Capsule) 20 mg PO TID PRN PRN Reason: abdominal pain Last Admin: 05/15/25 14:44 Dose: 20 mg Documented By: KADEN Ezetimibe (Ezetimibe 10 Mg Tablet) 10 mg PO BEDTIME [facility] Last Admin: 05/15/25 20:44 Dose: 10 mg Documented By: KENIA Famotidine (Famotidine 20 Mg Tablet) 40 mg PO DAILY [facility] Last Admin: 05/15/25 14:44 Dose: 40 mg Documented By: KADEN Sodium Chloride (Ns) 1,000 mls @ 100 mls/hr IVCONT .Q10H [facility] Last Admin: 05/16/25 06:23 Dose: 100 mls/hr Documented By: NASIMA Piperacillin Sod/Tazobactam (Sod 3.375 gm/ Sodium Chloride) 50 mls @ 100 mls/hr IV Q6H [facility] Last Admin: 05/16/25 06:23 Dose: 100 mls/hr Documented By: NASIMA Ketorolac Tromethamine (Ketorolac Tromethamine 15 Mg/Ml Vial) 15 mg IVPUSH Q6H [facility] Last Admin: 05/16/25 06:30 Dose: 15 mg Documented By: NASIMA Magnesium Oxide (Magnesium Oxide 400 Mg Tablet) 400 mg PO BEDTIME [facility] Last Admin: 05/15/25 20:44 Dose: 400 mg Documented By: KENIA Melatonin (Melatonin 3 Mg Tablet) 6 mg PO BEDTIME PRN PRN Reason: Insomnia Morphine Sulfate (Morphine Sulfate 4 Mg/Ml Cartridge) 2 mg IVPUSH Q4H PRN; Protocol PRN Reason: Pain, Moderate(Pain Scale 4-6) Last Admin: 05/15/25 10:25 Dose: 2 mg Documented By: LEONA Pt Own (Zolmitriptan (5 Mg Tablet)) 5 mg PO DAILY PRN PRN Reason: migraine Last Admin: 05/15/25 21:18 Dose: 5 mg Documented By: KENIA Ondansetron HCl (Ondansetron Hcl 4 Mg/2 Ml Vial) 4 mg IVPUSH Q8H PRN PRN Reason: Nausea and Vomiting Last Admin: 05/15/25 11:44 Dose: 4 mg Documented By: MARTHA Ondansetron HCl (Ondansetron Odt 4 Mg Tab.Rapdis) 4 mg TRANSLINGU TID PRN PRN Reason: Nausea and Vomiting Sodium Chloride (0.9 % Sodium Chloride Flush 3 Ml Syringe) 3 ml IVFLUSH QSHIFT [facility] Last Admin: 05/15/25 23:54 Dose: 3 ml Documented By: NASIMA Tizanidine HCl (Tizanidine Hcl 4 Mg Tablet) 4 mg PO Q8H PRN PRN Reason: muscle spasticity <Satnam Ramos PA-C - Last Filed: 05/16/25 07:56> Labs CBC & Chem 7: 05/16/25 05:43 05/14/25 21:18 <Satnam Ramos PA-C - Last Filed: 05/16/25 07:56> Labs: Laboratory Results - last 24 hr 05/15/25 05/15/25 05/16/25 09:15 Unknown 05:43 MCV 93.7 MCH 31.7 MCHC 33.8 RDW 12.7 Plt Count 227 D MPV 9.4 Immature Gran % (Auto) 0.2 Neut % (Auto) 60.1 Lymph % (Auto) 31.7 [place] % (Auto) 6.4 Eos % (Auto) 1.4 Baso % (Auto) 0.2 Lymph # (Auto) 1.6 [place] # (Auto) 0.3 Eos # (Auto) 0.1 Baso # (Auto) 0.0 Abs Immat Gran (auto) 0.01 Absolute Neuts (auto) 3.1 Absolute Nucleated RBC 0.000 Nucleated RBC % (auto) 0.0 POC Glucose 85 Estimat Average Glucose 100 Hemoglobin A1c % 5.1 Chlam trachomat DNA PCR NOT DETECTED N.gonorrhoeae DNA (PCR) NOT DETECTED T. vaginalis (PCR) NOT DETECTED Bact vaginosis (PCR) NEGATIVE C. krusei/glabrata (PCR) NOT DETECTED Lana group (PCR) NOT DETECTED 05/16/25 07:16 MCV MCH MCHC RDW Plt Count MPV Immature Gran % (Auto) Neut % (Auto) Lymph % (Auto) [place] % (Auto) Eos % (Auto) Baso % (Auto) Lymph # (Auto) [place] # (Auto) Eos # (Auto) Baso # (Auto) Abs Immat Gran (auto) Absolute Neuts (auto) Absolute Nucleated RBC Nucleated RBC % (auto) POC Glucose 83 Estimat Average Glucose Hemoglobin A1c % Chlam trachomat DNA PCR N.gonorrhoeae DNA (PCR) T. vaginalis (PCR) Bact vaginosis (PCR) C. krusei/glabrata (PCR) Lana group (PCR) <Satnam Ramos PA-C - Last Filed: 05/16/25 07:56> Microbiology Microbiology Results: Microbiology 05/14/25 Unknown Urine Culture - Preliminary Urine clean catch - Clean Catch Midstream No growth to date. <Satnam Ramos PA-C - Last Filed: 05/16/25 07:56> Procedures Date of Service Date of Service: 05/16/25 <Satnam Ramos PA-C - Last Filed: 05/16/25 07:56> 05/16/25 <Kulwant Diaz MD - Last Filed: 05/16/25 16:55> Progress Note: A&P Assessment and plan (1) Right lower quadrant abdominal pain: Status: Acute <Satnam Ramos PA-C - Last Filed: 05/16/25 07:56> Assessment and Plan: Currently denies significant pain or tenderness No fever No nausea or vomiting Abdomen is soft, benign, nontender Overall clinical picture not suggest acute appendicitis Symptoms likely related to ovarian cyst Diet as tolerated Likely to be discharged home later today Seen and examined independently Discussed with gyne <Kulwant Diaz MD - Last Filed: 05/16/25 16:55> (2) Ovarian cyst: Status: Acute <Satnam Ramos PA-C - Last Filed: 05/16/25 07:56> (3) Right lower quadrant abdominal pain: Status: Acute <Satnam Ramos PA-C - Last Filed: 05/16/25 07:56> Assessment and Plan: 39-year-old female admitted for right lower quadrant abdominal pain. Feeling overall improved. Still has some dull pain in the right lower quadrant. Denying fevers or chills. Had some nausea last night but currently denying nausea or vomiting. She had previously tolerated clear liquid diet. We will advance today to regular diet. On exam mildly tender in the right lower quadrant no peritoneal signs, otherwise soft and benign. Repeat lab work today showing no leukocytosis. Unlikely to be appendicitis, possible that she had a ruptured ovarian cyst. Diet advanced, if tolerating diet today, can likely be DC home. NURSE EMERGENCY recommendations appreciated <Satnam Ramos PA-C - Last Filed: 05/16/25 07:56> Time Spent With Patient Time: Total time managing care of this patient today ____ minutes. <Satnam Ramos PA-C - Last Filed: 05/16/25 07:56> Quality Stroke Does the patient have a stroke diagnosis?: No <Satnam Ramos PA-C - Last Filed: 05/16/25 07:56> VTE Prior VTE?: No <Satnam Ramos PA-C - Last Filed: 05/16/25 07:56> VTE Risk Level:: Surgical - low <Satnam Ramos PA-C - Last Filed: 05/16/25 07:56> VTE Device Contraindication: Treatment Not Indicated <Satnam Ramos PA-C - Last Filed: 05/16/25 07:56> VTE Drug Contraindication: Treatment Not Indicated <Satnam Ramos PA-C - Last Filed: 05/16/25 07:56>
--- NOTE | 2025-05-16 07:51 | PM.GYNPNOP ---
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 LAYER APPRENTICE - Subjective Subjective Date of Service: 05/16/25 Interval history: Doing well, pain has improved no nausea or vomiting CBC within normal [employer]PERVISOR PLATE [employer]ING Physical Exam Vitals Vital signs: Temp Pulse Resp BP Pulse Ox O2 Del Method 98.0 F 71 16 103/53 L 97 Room Air 05/16/25 07:14 05/16/25 07:14 05/16/25 07:14 05/16/25 07:14 05/16/25 07:14 05/16/25 07:14 BMI result Body Mass Index 40.2 Abdomen Auscultation/Inspection/Palpation: Normal bowel sounds, Soft, Non-distended and No tenderness FLOOR LAYER APPRENTICE - Prog Note: Results Labs 05/16/25 05:43 05/14/25 21:18 Labs: Laboratory Results - last 24 hr 05/15/25 05/15/25 05/16/25 09:15 Unknown 05:43 WBC 5.2 RBC 3.63 L Hgb 11.5 L Hct 34.0 L MCV 93.7 MCH 31.7 MCHC 33.8 RDW 12.7 Plt Count 227 D MPV 9.4 Immature Gran % (Auto) 0.2 Neut % (Auto) 60.1 Lymph % (Auto) 31.7 [place] % (Auto) 6.4 Eos % (Auto) 1.4 Baso % (Auto) 0.2 Lymph # (Auto) 1.6 [place] # (Auto) 0.3 Eos # (Auto) 0.1 Baso # (Auto) 0.0 Abs Immat Gran (auto) 0.01 Absolute Neuts (auto) 3.1 Absolute Nucleated RBC 0.000 Nucleated RBC % (auto) 0.0 POC Glucose 85 Estimat Average Glucose 100 Hemoglobin A1c % 5.1 Chlam trachomat DNA PCR NOT DETECTED N.gonorrhoeae DNA (PCR) NOT DETECTED T. vaginalis (PCR) NOT DETECTED Bact vaginosis (PCR) NEGATIVE C. krusei/glabrata (PCR) NOT DETECTED Lana group (PCR) NOT DETECTED 05/16/25 07:16 WBC RBC Hgb Hct MCV MCH MCHC RDW Plt Count MPV Immature Gran % (Auto) Neut % (Auto) Lymph % (Auto) [place] % (Auto) Eos % (Auto) Baso % (Auto) Lymph # (Auto) [place] # (Auto) Eos # (Auto) Baso # (Auto) Abs Immat Gran (auto) Absolute Neuts (auto) Absolute Nucleated RBC Nucleated RBC % (auto) POC Glucose 83 Estimat Average Glucose Hemoglobin A1c % Chlam trachomat DNA PCR N.gonorrhoeae DNA (PCR) T. vaginalis (PCR) Bact vaginosis (PCR) C. krusei/glabrata (PCR) Lana group (PCR) FLOOR LAYER APPRENTICE - A/P (1) Ovarian cyst: Status: Acute Assessment and Plan: Instructions given the patient to call or come back to emergency room in case of recurrenceof her pain, fever above 100.4, nausea or vomiting and to schedule follow-up appointment within 2 weeks. All questions answered, the patient verbalized understanding Time Spent With Patient Time: Total time managing care of this patient today ____ minutes. Quality Measures - SUPERVISOR PLATE PASTING H&P VTE Prior VTE?: No VTE Risk Level:: Surgical - low VTE Device Contraindication: Treatment Not Indicated VTE Drug Contraindication: Treatment Not Indicated
[2025-05-16] MEDS: Dextroamphetamine/Amphetamine XR 10 MG CAP.ER.24H 30 MG PO (08:52)
--- NOTE | 2025-05-16 09:02 | MHC.CM.PN ---
Lul[place] 05/16/25, Pt. is independent, no home health services. PCP confirmed: Meche Hoffman. Pt. may need assistance with transport home at DC, DCP: home, self care, CM to follow for DC needs.
[2025-05-16 10:26] LABS: Appearance Urine Clear; Glucose Urine UA Negative (Negative); PH 7.5 (5.0-9.0); Specific Gravity - Urine 1.010 (1.005-1.025)
[2025-05-16 12:00] VITALS: BP 118/57; PULSE 93; RESP 18; TEMP 36.9; O2SAT 98
--- NOTE | 2025-05-16 12:59 | PM.DS ---
DS: Providers Provider Date of admission: 05/15/25 08:59 Date of discharge: 05/16/25 Primary care physician: Meche Hoffman PA-C Admitting clinician: Elza Kasper Attending physician on admission: Elza Kasper Consults: 05/15/25 13:46 Consult to Obstetrics / Gynecology Routine Consulting Provider: [facility] Reason for consultation: ovarian cyst Has provider been notified: No Attending physician on discharge: Kulwant Diaz DS: Diagnosis Discharge Diagnosis (1) Right lower quadrant abdominal pain: Status: Acute (2) Ovarian cyst: Status: Acute DS: Summary Hospital Course Hospital Course: Admission HPI: Zuleyka Bowers is a 39 year old female who presented to the emergency room last night complaining of right lower quadrant abdominal pain. She denied any fevers or chills any nausea or vomiting. She has been having pain in the right lower quadrant area for the last 2 weeks on and off. She says this time it was getting worse and more intense. She describes the pain as more of a cramping pulling sensation and she was very tender in this area and so she was concerned for potential appendicitis and came into the ER. Here workup was carried out where her labs were all within normal limits white count normal. She did have a UA which showed significant red blood cell count which is unusual for her. She does have an IUD and does not get periods. She denies seeing any blood in her urine. She has had issues with yeast infections in the recent past was treated with several rounds of fluconazole before this was alleviated. She has seen [facility] [place] for this here. Patient has had her gallbladder out in the past. CT scan of the abdomen and pelvis was carried out which did not reveal any significant inflammatory changes but the appendix was not visualized. No fecaliths were noted. She does have a history of kidney stones although she thinks her kidney stones around the left side in the past. She says this feels similar but still different from her previous episodes of pain from her kidney stones. CT scan on review with Radiology does not show any evidence of any stones or hydronephrosis either on the left or right side. Patient does have a significant right ovarian cyst and a smaller left ovarian cyst. She says she has known that she has had ovarian cysts in the past but this 1 is now measuring 4 cm plus when she says her previous cysts were in the 3 cm range. There measuring out to be simple cysts and nothing more concerning. She does not have a significant amount of free fluid in the pelvis. She denies any trauma to the area she denies any unusual diet. No sick contacts. Hospital course: She was admitted for pain control likely secondry to ovarian cysts, but was started on empriric abx due to the inability to see the appendix on imaging. Admission day one she was feeling some improvement. Tolerating CLD, describing dull pain in RLQ. Vitals were stable. abdomen was soft and benign. Repeat lab work not showing leukocytosis. She was seen by base loader, Dr. Disla reporting no evidence of ovarian torsion or rupture, and given the intensity and the colicky nature of the pain, the clinical presentation makes ovarian cyst as a cause of the pain unlikely. Diet was advanced to regular diet. She tolerated this. Later that afternoon patient discussed discharge with Dr. Diaz in ultimately felt ready to be discharge. Clinically her presentation was not acute appendicitis. At the time of discharge patient's abdomen was soft and benign, vital signs were stable. She will follow up with Dr. Disla as outpatient for evaluation of ovarian cysts Status at Discharge Functional status at discharge: independent ambulation Overall status at discharge: patient is progressing back to baseline Time Attestation Discharge Coordination Time (in mins): 30 Quality: Safe Use of Opioids Does Pt have an Active Cancer Diagnosis on the Problem List?: No Quality: Stroke Does the patient have a stroke diagnosis?: No Physical Exam Vital Signs: Vital Signs: Last Vital Signs Temp 98.4 F 05/16/25 12:00 Pulse 93 05/16/25 12:00 Resp 18 05/16/25 12:00 BP 118/57 L 05/16/25 12:00 Pulse Ox 98 05/16/25 12:00 O2 Del Method Room Air 05/16/25 12:00 BMI result Body Mass Index 40.2 Const: General: comfortable and no acute distress Orientation/consciousness: patient oriented x3 Resp: Effort & Inspection: normal respiratory effort and able to speak in complete sentences GI: Inspection: No distended Palpation (GI): Soft to palpation, Tenderness to palpation present (GI) (Mild) in the RLQ; with no rebound tenderness and Rovsing's sign negative and no guarding Neuro: General: patient oriented x3 DS: Data Data Completed and Pending Labs on day of discharge: Laboratory Results - last 24 hr 05/15/25 05/16/25 05/16/25 Unknown 05:43 07:16 WBC 5.2 RBC 3.63 L Hgb 11.5 L Hct 34.0 L MCV 93.7 MCH 31.7 MCHC 33.8 RDW 12.7 Plt Count 227 D MPV 9.4 Immature Gran % (Auto) 0.2 Neut % (Auto) 60.1 Lymph % (Auto) 31.7 [place] % (Auto) 6.4 Eos % (Auto) 1.4 Baso % (Auto) 0.2 Lymph # (Auto) 1.6 [place] # (Auto) 0.3 Eos # (Auto) 0.1 Baso # (Auto) 0.0 Abs Immat Gran (auto) 0.01 Absolute Neuts (auto) 3.1 Absolute Nucleated RBC 0.000 Nucleated RBC % (auto) 0.0 POC Glucose 83 Estimat Average Glucose 100 Hemoglobin A1c % 5.1 Urine Color Urine Appearance Urine pH Ur Specific [place] Urine Protein Urine Glucose (UA) Urine Ketones Urine Blood Urine Nitrite Ur Leukocyte Esterase Urine RBC Urine WBC Ur Squamous Epith Cells Urine Bacteria Hyaline Casts Chlam trachomat DNA PCR NOT DETECTED N.gonorrhoeae DNA (PCR) NOT DETECTED T. vaginalis (PCR) NOT DETECTED Bact vaginosis (PCR) NEGATIVE C. krusei/glabrata (PCR) NOT DETECTED Lana group (PCR) NOT DETECTED 05/16/25 09:42 WBC RBC Hgb Hct MCV MCH MCHC RDW Plt Count MPV Immature Gran % (Auto) Neut % (Auto) Lymph % (Auto) [place] % (Auto) Eos % (Auto) Baso % (Auto) Lymph # (Auto) [place] # (Auto) Eos # (Auto) Baso # (Auto) Abs Immat Gran (auto) Absolute Neuts (auto) Absolute Nucleated RBC Nucleated RBC % (auto) POC Glucose Estimat Average Glucose Hemoglobin A1c % Urine Color Yellow Urine Appearance Clear Urine pH 7.5 Ur Specific [place] 1.010 Urine Protein Negative Urine Glucose (UA) Negative Urine Ketones Negative Urine Blood Negative Urine Nitrite Negative Ur Leukocyte Esterase Negative Urine RBC 0-2 Urine WBC 0-5 Ur Squamous Epith Cells 3-5 Urine Bacteria None Seen Hyaline Casts 0-2 Chlam trachomat DNA PCR N.gonorrhoeae DNA (PCR) T. vaginalis (PCR) Bact vaginosis (PCR) C. krusei/glabrata (PCR) Lana group (PCR) Preliminary micro results at discharge 05/14/25 Unknown Urine Culture - Preliminary Urine clean catch - Clean Catch Midstream No growth to date. Discharge Plan Discharge Anticipated Discharge Date/Time: 05/16/25 13:52 Patient Disposition: Home, Self-Care Referrals: Meche Hoffman PA-C [Primary Care Provider, Internal Medicine] - 1 Week Mat Disla MD [Physician, SUCTION DREDGE DUMPING SUPERVISOR] - 2 Weeks Discharge Medications: Continued cyanocobalamin (vitamin B-12) 1,000 mcg capsule 1,000 mcg PO DAILY Qty: 90 3RF Botox 200 unit recon soln See Rx Instructions .ROUTE .COMPLEX Qty: 1 0RF Patient Comments: Patient has not been able to start; insure will not cover, PA put in for that med. Rx Instructions: 200 units to be injected in forehead, cervical muscles , occipitalis q 3 mths by physician; meloxicam 15 mg tablet 15 mg PO DAILY PRN (Reason: Inflammation) miconazole nitrate [Miconazole-7] 2 % cream 1 appful vaginal BEDTIME PRN (Reason: Yeast Infection) Rx Instructions: Use as needed as discussed for vaginal yeast infection. pantoprazole 40 mg tablet,delayed release (DR/EC) 40 mg PO BID@0630,1630 dextroamphetamine-amphetamine 20 mg tablet 20 mg PO DAILY@1400 cholecalciferol (vitamin D3) 1,250 mcg (50,000 unit) capsule 1,250 mcg PO ELLIS atenolol 25 mg tablet 12.5 mg PO DAILY PRN (Reason: Heart Palpitations) magnesium oxide 400 mg magnesium tablet 400 mg PO BEDTIME Qty: 30 6RF zolmitriptan 5 mg tablet 5 mg PO DAILY MDD 10 mg PRN (Reason: migraine) Qty: 90 3RF Rx Instructions: max 2 tablets per day 2 days per week (DME) blood-glucose meter [Contour Next Meter] Misc See Rx Instructions .Route Qty: 1 0RF Rx Instructions: use daily as directed to monitor blood sugars (DME) Contour Next Test Strips Strip See Rx Instructions .Route Qty: 100 0RF Rx Instructions: use daily As directed (DME) lancets [Microlet Lancet] Misc See Rx Instructions .Route Qty: 100 2RF Rx Instructions: use daily As directed to monitor glucose (DME) Dexcom G7 Sensor Device See Rx Instructions .ROUTE .COMPLEX Qty: 9 3RF Dose Instruction: USE TO CHECK GLUCOSE THREE (3) TIMES DAILY WITH MEALS AND AT BEDTIME Rx Instructions: USE TO CHECK GLUCOSE THREE (3) TIMES DAILY WITH MEALS AND AT BEDTIME (DME) Dexcom G7 Selenium Plant Operator Misc See Rx Instructions .Route Qty: 1 1RF Rx Instructions: check glucose TID with meals and at bedtime albuterol sulfate [Ventolin HFA] 90 mcg/actuation HFA aerosol inhaler 2 puff inhalation Q6H PRN (Reason: shortness of breath or wheezing) Qty: 8.5 3RF atorvastatin 80 mg tablet 80 mg PO BEDTIME Qty: 90 3RF dextroamphetamine-amphetamine 30 mg capsule,extended release 24hr 1 cap PO DAILY Qty: 90 0RF dicyclomine 20 mg tablet 20 mg PO TID PRN (Reason: abdominal pain) 90 Days Qty: 270 3RF ezetimibe 10 mg tablet 10 mg PO DAILY Qty: 90 3RF famotidine 40 mg tablet 40 mg PO DAILY Qty: 90 3RF metformin 500 mg tablet 500 mg PO BID 90 Days Qty: 180 3RF ondansetron 4 mg tablet,disintegrating 4 mg PO TID PRN (Reason: nausea and vomiting) Qty: 270 3RF tizanidine 4 mg tablet 4 mg PO Q8H PRN (Reason: muscle spasticity) Qty: 90 3RF (DME) diabetic shoes and inserts See Rx Instructions .Route .MEDSUPPLY Qty: 1 0RF Rx Instructions: please provide 1 pair of shoes and 1-3 pairs of inserts Discharge Orders: Discharge Order (Routine); Ordered 05/16/25 Ordered By: Kulwant Diaz Diet: Advance to usual diet Activity on Discharge: As tolerated Stand Alone Forms: Patient Portal Discharge page Print Language: Chinese Care Plan Goals: return to baseline Health Concerns: ovarian cyst Plan of Treatment: follow up with PCP and CAT HOOKER Assessment: doing well Patient Instructions: Ovarian Cyst (DC) Discharge Date/Time: 05/16/25 19:48
[2025-05-16 15:26] VITALS: BP 132/64; PULSE 86; RESP 16; TEMP 36.8; O2SAT 97
--- NOTE | 2025-05-16 16:54 | P.EN_ITS ---
Event Note Date of Service: 05/18/25 Event Note: Seen multiple times today She was initially hesitant to be discharged She however says that she can go home She looks well Tolerating diet No fever Abdomen has remained very soft and benign Clinically not acute appendicitis She was instructed to follow up with Dr. Disla of absorption and adsorption engineer for ovarian cysts Time Spent With Patient Time: Total time managing care of this patient today ____ minutes.
--- NOTE | 2025-05-16 17:19 | PC.NURSE ---
Patient has discharge order - patient reported ride can come after 19:30 - reached out to Dr. Diaz via [employer] to see if patient IV antibiotics need to be given, provider verbalized IV antibiotics do not need to be given.
[2025-05-16 19:25] VITALS: BP 128/65; PULSE 83; RESP 81; TEMP 36.9; O2SAT 99
== END 2025-05-16 19:48 | disposition home or self-care (01) ==
LOC: HO.ED 05-15 09:09 → HO.EDOVER 05-15 09:19 → HO.S3 05-15 09:47
PROVIDERS: Emergency Medicine; Obstetrics & Gynecology; Admitting Provider Surgery; Emergency Provider Emergency Medicine; PCP Physician Assistant Medical; Visit Provider Surgery
DX: R10.31 Right lower quadrant pain (principal); N83.201 Unspecified ovarian cyst, right side; N83.202 Unspecified ovarian cyst, left side; R11.0 Nausea; E11.9 Type 2 diabetes mellitus without complications; E78.5 Hyperlipidemia, unspecified; Z20.2 Contact with and (suspected) exposure to infections with a predominantly sexual mode of transmission; Z87.42 Personal history of other diseases of the female genital tract; Z87.442 Personal history of urinary calculi
CPT/HCPCS: 36415; 74177; 76856; 80048; 80076; 81001; 81025; 81515; 82947; 83036; 83690; 85025; 87086; 87147; 87491; 87591; 93975; 96361; 96365; 96366; 96375; 96376; 99221; 99285; J1885; J2270; J2405; J2543; Q9967

== ENCOUNTER → 2025-05-15 00:50 | Outpatient (BNV) | payer OTHER, SELFPAY | PROVIDERS: Emergency Provider Emergency Medicine; PCP Physician Assistant Medical; Visit Provider Student in an Organized Health Care Education/Training Program | DX: N83.291 Other ovarian cyst, right side (principal); N83.292 Other ovarian cyst, left side | CPT/HCPCS: 74177; 93975 ==

== ENCOUNTER → 2025-05-15 08:59 | Outpatient (BNV) | payer OTHER, SELFPAY | PROVIDERS: Admitting Provider Surgery; Emergency Provider Emergency Medicine; PCP Physician Assistant Medical; Visit Provider Obstetrics & Gynecology | DX: N83.209 Unspecified ovarian cyst, unspecified side (principal) | CPT/HCPCS: 99223; 99232 ==

== ENCOUNTER → 2025-05-15 08:59 | Outpatient (BNV) | payer OTHER, SELFPAY | PROVIDERS: Admitting Provider Surgery; Emergency Provider Emergency Medicine; PCP Physician Assistant Medical; Visit Provider Surgery | DX: R10.31 Right lower quadrant pain (principal); N83.209 Unspecified ovarian cyst, unspecified side | CPT/HCPCS: 99222; 99238; 99499 ==